=== PATIENT | male | born 1965 | race Caucasian/White ===

== ENCOUNTER → 2016-10-30 | Outpatient (CLI) | payer OTHER ==
[~2016-10-30] MED LIST: AMLO10TA PO; BISA5TAB7 PO; CATA0.1T PO; CLON-412 PO; CONRAY-43 43% 50ML VIAL (Q9960) As Ordered ONE; FOLI1TAB2 PO; LISI10TA4 PO; OXAZ10CA PO; OXAZ30CA2 PO; TRAZ50TA4 PO; VITA100T60 PO; VITMTA PO; ZEST1TAB6 PO; ZOLO50TA PO; serax PO
--- NOTE | 2016-10-30 14:45 | REP ---
MR ARTHROGRAM RIGHT WRIST: TECHNIQUE: Coronal T1, STIR, axial T2 fat sat, sagittal T2 fat sat, post arthrogram T1 fat sat all three planes. The triangular fibrocartilage complex appears intact. There is a complete tear of the scapholunate ligament, with extension of contrast from the radiocarpal joint into the intercarpal joints. Lunatotriquetral ligament appears intact. There is increased signal with mild to moderate surrounding fluid in flexor carpi radialis tendon just distal to the radiocarpal joint, consistent with a partial tear of that tendon. The other flexor and extensor tendons appear intact at the wrist. There is no other evidence of tenosynovitis. Small amount of scattered joint fluid is seen in the intercarpal joints, radiocarpal and ulnocarpal joints. There appears to be a small cyst along the dorsal aspect of the ulna measuring about 6 mm in maximum diameter. There is no bone marrow edema or occult fracture. There is ulnar minus variance, with ht ulna approximately 7 mm shorter than the radius. IMPRESSION: Complete tear scapholunate ligament. Partial tear flexor carpi radialis tendon just distal to the radiocarpal joint. Small cyst along the dorsal aspect of the distal ulna 6 mm in maximum diameter. There is ulnar minus variance. Triangular fibrocartilage complex is intact. Signed by Balaji Huerta MD 10/30/2016 05:26 P
--- NOTE | 2016-10-30 17:53 | REP ---
RIGHT WRIST ARTHROGRAM: The procedure was performed under the direct supervision of Dr. Huerta. The images were reviewed with Dr. Huerta. The benefits and risks including, but not limited to pain, infection, bleeding, and anaphylaxis were explained to the patient and informed consent was obtained. The right radioscaphoid joint space was localized using fluoroscopic guidance. The skin was prepped and draped in a sterile fashion. 1% lidocaine was used as a local anesthetic. Using fluoroscopic guidance a 25-gauge needle was inserted and advanced into the joint. 3 mL of a solution containing 5 mL of Conray-43 and 5 mL of a solution containing 20 mL of sterile saline and 0.15 mL of ProHance was injected. Imaging obtained during injection show filling of the radiocarpal row. There is widening of the scapholunate interval. There is contrast seen in the intercarpal row. These findings suggest a scapholunate ligament tear. There is no contrast seen extending into the distal radioulnar joint. The triangular fibrocartilage complex appears intact. The needle was removed and the patient was taken to MRI for postprocedural imaging. IMPRESSION: There is widening of the scapholunate interval with contrast seen in the intercarpal row. These findings suggest a scapholunate ligament tear. 20 seconds of fluoroscopy time was utilized for this procedure. Reviewed by TERESA Pat 10/31/2016 09:23 AEdited and Signed by Balaji Huerta MD 11/01/2016 04:58 P
== END ==
LOC: M RADPRO 06:39
PROVIDERS: ATTEND Orthopaedic Surgery
DX: S63.511A Sprain of carpal joint of right wrist, initial encounter (principal); S63.8X1A Sprain of other part of right wrist and hand, initial encounter; M85.431 Solitary bone cyst, right ulna and radius; X58.XXXA Exposure to other specified factors, initial encounter; Y93.9 Activity, unspecified; Y92.9 Unspecified place or not applicable; Y99.8 Other external cause status
CPT/HCPCS: 25246; 73223; 77002; A9576; Q9960

== ENCOUNTER 2016-11-07 18:47 | Emergency (ER) | payer OTHER ==
[~2016-11-07] VITALS: Ht 177.8 cm; Wt 93.9 kg
[~2016-11-07 18:47] MED LIST changes: -CONRAY-43 43% 50ML VIAL (Q9960) As Ordered ONE; +LISI20TA PO; +MELO15TA4 PO
[2016-11-07] MEDS ORDERED: KETOROLAC 30 MG/ML VIAL (J1885) IV ONE (19:15)
--- NOTE | 2016-11-07 19:35 | REP ---
Chest two views HISTORY: Chest pain Comparison: 09/30/2013 The lungs are clear. The heart is normal in size. The pulmonary vasculature is normal in appearance. The bony structure is intact. IMPRESSION: No acute disease. Signed by Alex Wakefield MD 11/07/2016 07:28 P
[2016-11-07 19:54] LABS: INR 1.37
[2016-11-07 19:56] LABS: BASO # 0.1 K/mm3 (0.0-0.2); BASO % 0.8 % (0.0-1.0); EOS # 0.2 K/mm3 (0.0-0.50); EOS % 2.8 % (0.0-3.0); LARGE UNSTAINED CELL # 0.2 K/mm3 (0.0-0.4); LARGE UNSTAINED CELL % 2.5 % (0.0-4.0); LYMPH # 2.5 K/mm3 (1.5-4.5); LYMPH % 36.8 % (24.0-44.0); MEAN CORPUSCULAR HEMOGLOBIN 34.5 pg (27.0-33.0); MEAN CORPUSCULAR HGB CONC 33.4 g/dl (32.0-36.5); MEAN CORPUSCULAR VOLUME 103.3 fl (80.0-96.0); MONO # 0.4 K/mm3 (0.0-0.8); MONO % 5.9 % (0.0-5.0); NEUTROPHILS # 3.5 K/mm3 (1.8-7.7); NEUTROPHILS % 51.1 % (36.0-66.0); RED CELL DISTRIBUTION WIDTH 14.5 % (11.5-14.5); WHITE BLOOD COUNT 6.9 K/mm3 (4.0-10.0)
[2016-11-07 20:18] LABS: PLATELET COUNT, AUTOMATED 46 k/mm3 (150-450)
[2016-11-07 20:26] LABS: ANION GAP 8 MEQ/L (8-16); BLOOD UREA NITROGEN 8 MG/DL (7-18); CARBON DIOXIDE LEVEL 28 MEQ/L (21-32); CHLORIDE LEVEL 101 MEQ/L (98-107); CREATININE FOR GFR 0.72 MG/DL (0.70-1.30); GLOMERULAR FILTRATION RATE > 60.0 (>56); GLUCOSE, FASTING 102 MG/DL (70-105); POTASSIUM SERUM 3.9 MEQ/L (3.5-5.1); SODIUM LEVEL 137 MEQ/L (136-145)
[2016-11-07] MEDS ORDERED: NS 1,000 ML IV ONE (20:45)
[2016-11-07] MEDS ORDERED: ISOVUE-370 76% 100ML VIAL (Q9967) As Ordered ONE (21:04)
--- NOTE | 2016-11-07 21:50 | REPUSA ---
CT angiogram of the chest Clinical statement: Chest pain and shortness of breath. Technique: Multiple axial CT images were obtained from the thoracic inlet through the upper abdomen a fter a bolus administration of nonionic intravenous contrast. Coronal and sagittal reconstructions we re also obtained. No comparison is available. Findings: The pulmonary arteries are well-opacified with contrast, with no intraluminal filling defec ts to suggest embolism. The thoracic aorta is unremarkable. Thyroid gland is within normal limits. Th ere is no thoracic lymphadenopathy. There are no pericardial or pleural effusions. The lungs are josh r. An azygous lobe is noted in the right lung. Limited imaging of the upper abdomen is unremarkable. There are no suspicious osseous lesions. Impression: Unremarkable CT examination of the chest. No evidence of pulmonary embolism.
--- NOTE | 2016-11-07 21:55 | ECGEPIP ---
Stationary ECG Study [facility] - ED Test Date: 2016-11-07 Pat Name: LOUIS SINGER Department: Room: - Gender: M Scouts: CAROLA : 1965 Requested By: Sara Alston Order Number: [id number] Reading MD: Kodak Malloy Measurements Intervals [place] Rate: 77 P: 46 CT: 134 QRS: 1 QRSD: 92 T: 30 QT: 400 QTc: 453 Interpretive Statements SINUS RHYTHM NONSPECIFIC T-WAVE ABNORMALITY SIMILAR TO 05/12/15 Electronically Signed On 11-07-2016 21:55:20 EDT by Kodak Malloy
[2016-11-07] MEDS ORDERED: KETO10TAB PO (22:58)
[2016-11-07 23:02] VITALS: BP 148/94
== END 2016-11-07 23:13 | disposition home or self-care (01) ==
LOC: M ED 19:43
DX: R07.89 Other chest pain (principal)
CPT/HCPCS: 36415; 71020; 71275; 80048; 82550; 82553; 85025; 85610; 85730; 93005; 96374; 99283; J1885; Q9967

== ENCOUNTER 2017-11-05 20:15 | Inpatient (IN) | payer MEDICAID, OTHER, SELFPAY ==
[2017-11-05 22:01] LABS: LACTIC ACID SEPSIS PROTOCOL 1.6 MMOL/L (0.4-2.0)
[2017-11-05 22:02] LABS: HEMATOCRIT 35.2 % (42.0-52.0); HEMOGLOBIN 12.2 g/dl (13.5-17.5); MEAN CORPUSCULAR HGB CONC 34.7 g/dl (32.0-36.5); MEAN CORPUSCULAR VOLUME 103.8 fl (80.0-96.0); RED BLOOD COUNT 3.39 10^6/uL (4.30-6.10); RED CELL DISTRIBUTION WIDTH 15.3 % (11.5-14.5)
[2017-11-05 22:03] LABS: ALBUMIN 2.6 GM/DL (3.2-5.2); ALKALINE PHOSPHATASE 139 U/L (45-117); ALT/SGPT 38 U/L (12-78); ANION GAP 7 MEQ/L (8-16); AST/SGOT 161 U/L (7-37); BILIRUBIN,DIRECT 1.7 MG/DL (0.0-0.2); BILIRUBIN,TOTAL 2.5 MG/DL (0.2-1.0); BLOOD UREA NITROGEN 5 MG/DL (7-18); CALCIUM LEVEL 7.9 MG/DL (8.5-10.1); CARBON DIOXIDE LEVEL 27 MEQ/L (21-32); CHLORIDE LEVEL 107 MEQ/L (98-107); CPK CREATINE PHOSPHOKINASE 462 U/L (39-308); GLOMERULAR FILTRATION RATE > 60.0 (>56); GLUCOSE, FASTING 101 MG/DL (70-100); POTASSIUM SERUM 3.7 MEQ/L (3.5-5.1); SODIUM LEVEL 141 MEQ/L (136-145); TOTAL PROTEIN 9.1 GM/DL (6.4-8.2); TROPONIN I < 0.02 NG/ML (< 0.10)
[2017-11-05 22:07] LABS: ADD MANUAL DIFFER YES; DIFF SLIDE NUMBER 361; PLATELET COUNT, AUTOMATED 55 10^3/uL (150-450); POS COUNT POS FLAG; POSITIVE DIFF POS FLAG
[2017-11-05 22:08] LABS: IMMATURE PLATELET FRACTION % 10.9 % (0.0-10.9)
[2017-11-05 22:10] LABS: AMPHETAMINES LEVEL URINE NEGATIVE (NEGATIVE); BARBITURATES URINE NEGATIVE (NEGATIVE); BENZODIAZEPINES URINE NEGATIVE (NEGATIVE); CANNABINOIDS URINE NEGATIVE (NEGATIVE); COCAINE METABOLITE URINE NEGATIVE (NEGATIVE); METHADONE URINE NEGATIVE (NEGATIVE); OPIATES URINE NEGATIVE (NEGATIVE); PHENCYCLIDINE URINE NEGATIVE (NEGATIVE)
[2017-11-05 22:15] LABS: KETONE, URINE AUTO RFX NEGATIVE (NEGATIVE); LEUKOCYTE ESTERASE UR AUTO RFX NEGATIVE (NEGATIVE); NITRITE, URINE AUTO RFX NEGATIVE (NEGATIVE); RBC, URINE AUTO RFX 3 /HPF (0-3); SPECIFIC GRAVITY UR AUTO RFX 1.006 (1.002-1.035); SQUAM EPITHELIAL CELL UR AURFX 0 /HPF (0-6); WBC, URINE AUTO RFX 0 /HPF (0-3)
[2017-11-05 22:19] LABS: CK-MB VALUE MASS 10.5 NG/ML (<3.6); MB/CK RELATIVE INDEX 2.27 (< OR =4); PROTHROMBIN TIME 19.5 SECONDS (12.4-14.5)
[2017-11-05 22:20] LABS: PARTIAL THROMBOPLASTIN TIME 41.6 SECONDS (26.8-37.9)
[2017-11-05 22:23] LABS: ETHYL ALCOHOL (ETHANOL) 0.437 % (0.000-0.010)
[2017-11-05 22:31] LABS: ATYPICAL LYMPH 3 % (0-5); EOSINOPHILS 5 % (0-5); LYMPHOCYTES 47 % (16-52); MONOCYTES 6 % (0-8); NEUTROPHILS 39 % (35-75)
[2017-11-05 22:33] LABS: PLATELET ESTIMATE DECREASED (NORMAL)
[2017-11-05 23:16] LABS: AMMONIA 47 uMOL/L (<32)
[2017-11-06] MEDS ORDERED: ONDANSETRON 4MG/2ML VIAL (J2405) IV (03:00)
[2017-11-06] MEDS: MULTIVITAMIN -ADULT INJECTION 10 ML, THIAMINE INJection 100 MG, FOLIC ACID 1 MG in NS 1... IV (04:30)
[2017-11-06] MEDS ORDERED: LORazepam 2 MG/ML VIAL (J2060) IV (05:30)
[2017-11-06 05:54] LABS: BASO # 0.1 10^3/uL (0.0-0.2); EOS # 0.2 10^3/uL (0.0-0.50); EOS % 2.7 % (0.0-3.0); HEMOGLOBIN 12.2 g/dl (13.5-17.5); IMMATURE GRANULOCYTE % 0.3 % (0-3.0); LYMPH % 40.8 % (24.0-44.0); MEAN CORPUSCULAR HEMOGLOBIN 35.3 pg (27.0-33.0); MEAN CORPUSCULAR HGB CONC 34.9 g/dl (32.0-36.5); MEAN CORPUSCULAR VOLUME 101.2 fl (80.0-96.0); MONO # 0.7 10^3/uL (0.0-0.8); MONO % 8.9 % (0.0-5.0); NEUTROPHILS # 3.4 10^3/uL (1.8-7.7); NEUTROPHILS % 46.3 % (36.0-66.0); RED BLOOD COUNT 3.46 10^6/uL (4.30-6.10); RED CELL DISTRIBUTION WIDTH 15.3 % (11.5-14.5); WHITE BLOOD COUNT 7.3 10^3/uL (4.0-10.0)
[2017-11-06 06:01] LABS: PLATELET COUNT, AUTOMATED 47 10^3/uL (150-450)
[2017-11-06 06:10] LABS: ALBUMIN 2.5 GM/DL (3.2-5.2); ALKALINE PHOSPHATASE 123 U/L (45-117); ALT/SGPT 34 U/L (12-78); ANION GAP 8 MEQ/L (8-16); AST/SGOT 160 U/L (7-37); BILIRUBIN,TOTAL 2.8 MG/DL (0.2-1.0); BLOOD UREA NITROGEN 4 MG/DL (7-18); CALCIUM LEVEL 7.9 MG/DL (8.5-10.1); CARBON DIOXIDE LEVEL 28 MEQ/L (21-32); CHLORIDE LEVEL 109 MEQ/L (98-107); CREATININE FOR GFR 0.53 MG/DL (0.70-1.30); GLOMERULAR FILTRATION RATE > 60.0 (>56); GLUCOSE, FASTING 94 MG/DL (70-100); POTASSIUM SERUM 3.6 MEQ/L (3.5-5.1); SODIUM LEVEL 145 MEQ/L (136-145); TOTAL PROTEIN 8.8 GM/DL (6.4-8.2)
[2017-11-06] MEDS ORDERED: SENOKOT S TAB PO (09:00)
[2017-11-06] MEDS: LACTULOSE 20 GM/30 ML SYRUP UD PO ×2 (09:11→21:07)
[2017-11-06] MEDS ORDERED: ISOVUE-370 76% 100ML VIAL (Q9967) As Ordered (10:22)
[2017-11-06 10:26] LABS: HEPATITIS B SURFACE ANTIGEN NEGATIVE (NEGATIVE)
[2017-11-06 10:46] LABS: HEPATITIS C VIRUS ABY INDEX 0.1 INDEX (<0.8)
[2017-11-06 10:48] LABS: LACTIC ACID SEPSIS PROTOCOL 2.3 MMOL/L (0.4-2.0)
[2017-11-06 10:48] LABS: HEPATITIS B CORE ANTIBODY IGM NEGATIVE (NEGATIVE)
[2017-11-06 10:55] LABS: PROLACTIN 12.7 NG/ML (2.1-17.7)
[2017-11-06] MEDS: NS 1,000 ML IV (12:26)
[2017-11-06] MEDS: OXAZEPAM 10 MG CAP PO ×2 (13:03→21:10)
[2017-11-06 15:01] LABS: SPEC. GRAVITY BODY FLUIDS 1.018 (NOT ESTABLISHED)
[2017-11-06 15:23] LABS: SOURCE, BODY FLUID ALBUMIN ASCITES; SOURCE, BODY FLUID GLUCOSE ASCITES; SOURCE, BODY FLUID TOT PROTEIN ASCITES; TOTAL PROTEIN, BODY FLUID 2.4 G/DL (NOT ESTABLISHED)
[2017-11-06 15:31] LABS: BF MONONUCLEAR CELL % 88.6 % (0-0); BF POLYMORPHONUCLEAR CELL % 11.4 % (0-0); RBC BODY FLUID < 2 10^3/uL (<2); WBC BODY FLUID 149 /uL (0-10)
[2017-11-06 15:34] LABS: APPEARANCE, BODY FLUID HAZY (CLEAR); ASCITES FL COLOR YELLOW (COLORLESS); BF DIFF IF INDICATED? YES (NO); SOURCE, BODY FLUID ASCITES
[2017-11-06] MEDS: THIAMINE 100 MG TAB PO (21:07)
[2017-11-07] MEDS: ACETAMINOPHEN TAB 650MG DOSE (2X325MG) PO (05:55)
[2017-11-07] MEDS: OXAZEPAM 10 MG CAP PO ×5 (05:56→23:54)
[2017-11-07] MEDS: THIAMINE 100 MG TAB PO ×2 (08:15→20:37)
[2017-11-07] MEDS: FOLIC ACID 1 MG TAB PO (08:16)
[2017-11-07] MEDS: LACTULOSE 20 GM/30 ML SYRUP UD PO ×2 (08:16→20:37)
[2017-11-07] MEDS: amLODIPine 10 MG TAB PO (17:35)
[2017-11-08] MEDS: OXAZEPAM 10 MG CAP PO ×2 (05:27→13:02)
[2017-11-08] MEDS: THIAMINE 100 MG TAB PO (08:30)
[2017-11-08] MEDS: LACTULOSE 20 GM/30 ML SYRUP UD PO (08:30)
[2017-11-08] MEDS: FOLIC ACID 1 MG TAB PO (08:30)
== END 2017-11-08 14:38 | disposition home health service (06) | DRG 775 ==
LOC: M ED 20:15 → M ED INP 11-06 02:48 → M MSPAV 11-07 13:14 → M PCU 11-06 05:58
PROC: 0W9G3ZZ Drainage of Peritoneal Cavity, Percutaneous Approach (ICD-10-PCS; principal; 2017-11-06)
DX: F10.239 Alcohol dependence with withdrawal, unspecified (principal); R18.8 Other ascites; D69.6 Thrombocytopenia, unspecified; K70.9 Alcoholic liver disease, unspecified; F10.220 Alcohol dependence with intoxication, uncomplicated; I10 Essential (primary) hypertension; K42.9 Umbilical hernia without obstruction or gangrene; K21.9 Gastro-esophageal reflux disease without esophagitis; Z79.899 Other long term (current) drug therapy

== ENCOUNTER → 2019-03-17 | Outpatient (CLI) | payer OTHER ==
[~2019-03-17] MED LIST changes: +BIOF4GEL2 EXT; +FOLI1TAB11 PO; -FOLI1TAB2 PO; +KETO10TAB PO; +LACT10SO3 PO; -LISI20TA PO; +LISI20TA19 PO; +MELO15TA28 PO; -MELO15TA4 PO; -OXAZ10CA PO; +OXAZ10CA3 PO; +THIA100TA PO; +TRAZ-252 PO; -TRAZ50TA4 PO; +[UNRECOGNIZED DRUG - OTHER] XX
--- NOTE | 2019-03-17 18:43 | REP ---
Shoulder series: Three views: History: Chronic left shoulder pain. Findings: The left glenohumeral and acromioclavicular joints are normally aligned. Periarticular soft tissues are unremarkable. No erosive changes seen. Impression: No acute abnormality. Electronically Signed by Abilio Singh MD 03/18/2019 09:07 A
--- NOTE | 2019-03-17 18:46 | REP ---
Left ankle series: Four views. History: Chronic left ankle pain. Findings: Four views of the left ankle demonstrate an intact ankle mortise there is a small corticated ossicle adjacent to the medial malleolus. A linear wafer shaped calcific opacity is seen adjacent to the lateral malleolus, suggestive of a evulsion chip fracture. There is lateral soft tissue swelling. This should be correlated with historical findings. No erosive change is seen. There is some vascular calcification in the distal calf soft tissues and this lateral soft tissue density may relate to this as well. No donor site is seen. Impression: No acute bony abnormality. Lateral soft tissue swelling. Linear calcific opacity adjacent to the lateral malleolus of uncertain significance as above. Electronically Signed by Abilio Singh MD 03/18/2019 09:08 A
== END ==
LOC: M LRY 15:46
PROVIDERS: ATTEND Family Medicine
DX: M25.512 Pain in left shoulder (principal); M25.572 Pain in left ankle and joints of left foot

== ENCOUNTER → 2019-03-17 | Outpatient (REF) | payer OTHER ==
[2019-03-17 17:12] LABS: BASO % 0.7 % (0.0-1.0); EOS # 0.2 10^3/uL (0.0-0.5); EOS % 2.8 % (0.0-3.0); HEMATOCRIT 38.3 % (42.0-52.0); HEMOGLOBIN 13.2 g/dl (13.5-17.5); LYMPH # 2.5 10^3/uL (1.5-5.0); LYMPH % 44.1 % (24.0-44.0); MEAN CORPUSCULAR HEMOGLOBIN 34.1 pg (27.0-33.0); MEAN CORPUSCULAR HGB CONC 34.5 g/dl (32.0-36.5); MONO # 0.5 10^3/uL (0.0-0.8); MONO % 8.9 % (0.0-5.0); NEUTROPHILS # 2.5 10^3/uL (1.5-8.5); NEUTROPHILS % 43.3 % (36.0-66.0); RED BLOOD COUNT 3.87 10^6/uL (4.30-6.10); WHITE BLOOD COUNT 5.7 10^3/uL (4.0-10.0)
[2019-03-17 17:22] LABS: APPEARANCE, URINE CLEAR (CLEAR); BACTERIA, URINE AUTO NEGATIVE (NEGATIVE); BILIRUBIN, URINE AUTO NEGATIVE (NEGATIVE); BLOOD, URINE BLOOD 2+ (NEGATIVE); COLOR, URINE YELLOW (YELLOW); GLUCOSE, URINE (UA) AUTO NEGATIVE (NEGATIVE); KETONE, URINE AUTO NEGATIVE (NEGATIVE); LEUKOCYTE ESTERASE, URINE AUTO NEGATIVE (NEGATIVE); MUCUS, URINE SMALL (NEGATIVE); NITRITE, URINE AUTO NEGATIVE (NEGATIVE); PROTEIN, URINE AUTO NEGATIVE (NEGATIVE); RBC, URINE AUTO 7 /HPF (0-3); SPECIFIC GRAVITY URINE AUTO 1.013 (1.002-1.035); SQUAMOUS EPITHELIAL CELL UR AU 0 /HPF (0-6); UROBILINOGEN, URINE AUTO 0.2 mg/dL (0.0-2.0); WBC, URINE AUTO 0 /HPF (0-3)
[2019-03-17 17:23] LABS: ALBUMIN 3.3 GM/DL (3.2-5.2); ALT/SGPT 39 U/L (12-78); BILIRUBIN,TOTAL 1.6 MG/DL (0.2-1.0); BLOOD UREA NITROGEN 9 MG/DL (7-18); CALCIUM LEVEL 9.2 MG/DL (8.5-10.1); CARBON DIOXIDE LEVEL 26 MEQ/L (21-32); CHLORIDE LEVEL 108 MEQ/L (98-107); CREATININE FOR GFR 1.04 MG/DL (0.70-1.30); ETHYL ALCOHOL (ETHANOL) 0.273 % (0.000-0.010); FOLATE 16.1 NG/ML; GLOMERULAR FILTRATION RATE > 60.0 (>56); GLUCOSE, FASTING 107 MG/DL (70-100); MAGNESIUM LEVEL 1.8 MG/DL (1.8-2.4); POTASSIUM SERUM 4.1 MEQ/L (3.5-5.1); SODIUM LEVEL 143 MEQ/L (136-145); TOTAL PROTEIN 8.3 GM/DL (6.4-8.2); VITAMIN B12 LEVEL 1365 PG/ML
[2019-03-17 17:27] LABS: INR 1.47; PROTHROMBIN TIME 17.6 SECONDS (11.8-14.0)
[2019-03-17 17:28] LABS: PARTIAL THROMBOPLASTIN TIME 36.2 SECONDS (25.0-38.4)
[2019-03-17 17:30] LABS: URINE TOTAL PROTEIN 18.9 MG/DL (0-12)
[2019-03-17 17:46] LABS: PLATELET COUNT, AUTOMATED 66 10^3/uL (150-450)
[2019-03-19 10:02] LABS: ALBUMIN 3.96 GM/DL (3.29-5.55); ALBUMIN % 47.7 % (55.8-66.1); ALPHA-1-GLOBULIN % 3.1 % (2.9-4.9); ALPHA-1-GLOBULINS 0.26 GM/DL (0.17-0.41); ALPHA-2-GLOBULINS 0.63 GM/DL (0.42-0.99); ALPHA-2-GLOBULINS % 7.6 % (7.1-11.8); BETA-1-GLOBULINS 0.51 GM/DL (0.28-0.60); BETA-1-GLOBULINS % 6.2 % (4.7-7.2); BETA-2-GLOBULINS % 7.2 % (3.2-6.5); GAMMA GLOBULIN % 28.2 % (11.1-18.8); GAMMA GLOBULINS 2.34 GM/DL (0.65-1.58)
[2019-03-19 13:53] LABS: UPEP INTERPRETATION NO M-SPIKE NOTED; URINE VOLUME RANDOM ML
== END ==
LOC: M SFHCLERA 15:36
PROVIDERS: ATTEND Family Medicine
DX: M89.8X9 Other specified disorders of bone, unspecified site (principal); K76.9 Liver disease, unspecified; F10.10 Alcohol abuse, uncomplicated
CPT/HCPCS: 80053; 81001; 82105; 82607; 82746; 83735; 84165; 84166; 84443; 85025; 85049; 85055; 85610; 85730; G0480

== ENCOUNTER → 2019-03-26 | Outpatient (CLI) | payer MEDICAID ==
--- NOTE | 2019-03-26 08:20 | REP ---
, right upper quadrant ultrasound for chronic liver disease: Comparison is 11/05/2017. There is no cholelithiasis, gallbladder wall thickening or pericholecystic fluid. There is no intrahepatic or extrahepatic biliary duct dilatation. The common biliary duct measures 4.1 ml in diameter. The hepatic parenchyma demonstrates increased heterogeneous echogenicity compatible with the clinical history of chronic hepatocellular disease. No focal hepatic masses are identified. The left lobe of the liver appears enlarged, also compatible with chronic hepatocellular disease. With Doppler ultrasound assessment. There is flow reversal in the main portal vein suggestive of portal hypertension. The right kidney measures 12.7 x 6.1 x 6.5 cm and is normal size. There is no right renal calculus, hydronephrosis, mass or cyst. The there appears to be increased volume of fat in the right renal pelvis. The abdominal aorta is unremarkable. There is no right upper quadrant ascites. Impression: Echogenic heterogeneous hepatic parenchyma, enlarged hepatic left lobe, all compatible with chronic hepatocellular disease. There is no hepatic mass. There is reversal of flow in the portal vein, compatible with portal hypertension. Electronically Signed by Balaji Mendoza MD 03/26/2019 08:11 A
== END ==
LOC: M RAD 06:35
PROVIDERS: ATTEND Family Medicine
DX: K76.9 Liver disease, unspecified (principal)

== ENCOUNTER → 2019-03-31 | Outpatient (REF) | payer MEDICAID ==
[2019-03-31 16:56] LABS: APPEARANCE, URINE CLEAR (CLEAR); BACTERIA, URINE AUTO NEGATIVE (NEGATIVE); BILIRUBIN, URINE AUTO NEGATIVE (NEGATIVE); BLOOD, URINE BLOOD 2+ (NEGATIVE); COLOR, URINE AMBER (YELLOW); GLUCOSE, URINE (UA) AUTO NEGATIVE (NEGATIVE); KETONE, URINE AUTO NEGATIVE (NEGATIVE); LEUKOCYTE ESTERASE, URINE AUTO NEGATIVE (NEGATIVE); MUCUS, URINE SMALL (NEGATIVE); NITRITE, URINE AUTO NEGATIVE (NEGATIVE); PROTEIN, URINE AUTO NEGATIVE (NEGATIVE); RBC, URINE AUTO 25 /HPF (0-3); SPECIFIC GRAVITY URINE AUTO 1.015 (1.002-1.035); SQUAMOUS EPITHELIAL CELL UR AU 0 /HPF (0-6); WBC, URINE AUTO 1 /HPF (0-3)
== END ==
LOC: M SFHCLERA 12:58
PROVIDERS: ATTEND Family Medicine
DX: R31.29 Other microscopic hematuria (principal)

== ENCOUNTER 2019-08-31 09:28 | Outpatient (RCR) | payer OTHER ==
[~2019-08-31 09:28] MED LIST changes: +LISI-538 PO
== END 2019-09-05 ==
LOC: M PT 09:28
PROVIDERS: ATTEND Physician Assistant Medical
DX: S93.402A Sprain of unspecified ligament of left ankle, initial encounter (principal); M25.572 Pain in left ankle and joints of left foot; X58.XXXA Exposure to other specified factors, initial encounter; Y92.9 Unspecified place or not applicable

== ENCOUNTER 2019-09-09 09:30 | Outpatient (RCR) | payer OTHER | END 2019-10-06 | LOC: M PT 09:30 | PROVIDERS: ATTEND Physician Assistant Medical | DX: Z51.89 Encounter for other specified aftercare (principal); M25.572 Pain in left ankle and joints of left foot; S93.402A Sprain of unspecified ligament of left ankle, initial encounter; X58.XXXA Exposure to other specified factors, initial encounter; Y92.89 Other specified places as the place of occurrence of the external cause; Y93.9 Activity, unspecified; Y99.9 Unspecified external cause status ==

== ENCOUNTER 2019-12-23 15:10 | Inpatient (IN) | payer OTHER ==
[~2019-12-23] VITALS: Ht 182.9 cm; Wt 83.5 kg
[~2019-12-23 15:10] MED LIST changes: -LISI-538 PO; +LISI10TA22 PO; -LISI10TA4 PO; -LISI20TA19 PO; +LISI20TA33 PO; +LISI20TA35 PO
[2019-12-23] MEDS ORDERED: CEPH500C PO (15:15)
[2019-12-23] MEDS ORDERED: IBUP80TA PO (15:15)
[2019-12-23] MEDS ORDERED: NS 1,000 ML IV ONE (16:00)
[2019-12-23] MEDS ORDERED: PANTOPRAZOLE 40MG VIAL (C9113 PER 1) IV ONE ×2 (16:30→16:45)
[2019-12-23] MEDS ORDERED: LORazepam 2 MG/ML VIAL IV STA ×2 (16:32→18:04)
[2019-12-23] MEDS ORDERED: OCTREOTIDE ACETATE 100MCG/ML VIAL (J2354 PER 25MCG) IV STA (16:40)
[2019-12-23] MEDS: PANTOPRAZOLE SODIUM 40 MG in D5W 50 ML IV SCH ×3 (16:44→23:27)
[2019-12-23] MEDS ORDERED: OCTREOTIDE ACETATE 1,200 MCG in NS 238.8 ML IV SCH (16:45)
[2019-12-23 17:04] LABS: BASO % 0.8 % (0.0-1.0); EOS % 0.2 % (0.0-3.0); HEMATOCRIT 35.2 % (42.0-52.0); HEMOGLOBIN 11.5 g/dl (13.5-17.5); LYMPH # 1.1 10^3/uL (1.5-5.0); LYMPH % 20.2 % (24.0-44.0); MEAN CORPUSCULAR HEMOGLOBIN 32.3 pg (27.0-33.0); MEAN CORPUSCULAR HGB CONC 32.7 g/dl (32.0-36.5); MEAN CORPUSCULAR VOLUME 98.9 fl (80.0-96.0); MONO # 0.3 10^3/uL (0.0-0.8); NEUTROPHILS # 3.8 10^3/uL (1.5-8.5); NEUTROPHILS % 72.6 % (36.0-66.0); RED BLOOD COUNT 3.56 10^6/uL (4.30-6.10); WHITE BLOOD COUNT 5.2 10^3/uL (4.0-10.0)
[2019-12-23 17:09] LABS: PLATELET COUNT, AUTOMATED 33 10^3/uL (150-450)
[2019-12-23 17:20] LABS: PROTHROMBIN TIME 18.8 SECONDS (11.8-14.0)
[2019-12-23 17:21] LABS: PARTIAL THROMBOPLASTIN TIME 33.9 SECONDS (25.0-38.4)
[2019-12-23 17:25] LABS: ALBUMIN 3.2 GM/DL (3.2-5.2); ALT/SGPT 70 U/L (12-78); BILIRUBIN,DIRECT 2.4 MG/DL (0.0-0.2); BILIRUBIN,TOTAL 4.1 MG/DL (0.2-1.0); BLOOD UREA NITROGEN 22 MG/DL (7-18); CALCIUM LEVEL 8.6 MG/DL (8.5-10.1); CARBON DIOXIDE LEVEL 25 MEQ/L (21-32); CHLORIDE LEVEL 108 MEQ/L (98-107); CREATININE FOR GFR 0.79 MG/DL (0.70-1.30); ETHYL ALCOHOL (ETHANOL) 0.236 % (0.000-0.010); GLOMERULAR FILTRATION RATE > 60.0 (>56); GLUCOSE, FASTING 163 MG/DL (70-100); LIPASE 250 U/L (73-393); POTASSIUM SERUM 4.5 MEQ/L (3.5-5.1); SODIUM LEVEL 141 MEQ/L (136-145); TOTAL PROTEIN 7.7 GM/DL (6.4-8.2)
[2019-12-23] MEDS ORDERED: cefTRIAXone SOD 1 GM in D5W MINI-BAG PLUS 50 ML IV ONE (17:45)
[2019-12-23 18:26] LABS: D-DIMER QUANT > 4000 ng/ml (<500)
[2019-12-23 18:47] LABS: CK-MB VALUE MASS 4.7 NG/ML (<3.6); MB/CK RELATIVE INDEX 0.81 (< OR =4); TROPONIN I 0.04 NG/ML (< 0.10)
--- NOTE | 2019-12-23 19:21 | CR.PDOC ---
General Date of Consultation: Dec 23, 2019 Referring Provider: SYLVIA GAONA MD Attending Physician: WENCESLAO PETERS MD Consultation Primary physician/ hospitalist: -PCP in [facility] ( used to See Dr. Vanegas) / Dr. Sylvia Gaona Reason for consult: -Hematemesis HPI: 54-year-old male patient with HTN, HLD, acid reflux, heavy alcohol use, (last drink overnight), suspected liver cirrhosis and portal hypertension and ultrasound done in 2019, not following with any physician recently, presented to ER for symptoms of hematemesis. GI was consulted for the same. Patient reports having acute onset vomiting with blood in the vomit, at least 4 episodes since today morning. He had one witnessed hematemsis in ER and he does reports some abdominal pain from vomiting but none prior to onset of the vomiting. He reports taking ibuprofen daily for the past 1 week for back and leg pain. He denies taking any blood thinning medications. His last meal is breakfast when he ate left over pizza from yesterday. He denies any previous episodes of vomiting blood. Patient does report tremulousness when he does not drink alcohol for couple of days. Pertinent negative GI symptoms: Patient denies fever, sick contacts, recent travel, diarrhea, abdominal pain, loss of appetite, early satiety or unintentional weight loss. Patient reports regular bowel movements. Review of Systems: GI: as stated above CVS: No chest pain, No palpitations, No leg swelling. RS: No Shortness of breath, No Wheezing, no cough SHANK MAKER: No dizziness, No motor weakness, No sensory problems Hematology: No bruising, No gum bleeding, Musculoskeletal: No joint pain, ambulating well. Skin: No rash : No hematuria, No burning sensation of the urine ENT: No ear discharge/ pain, No dysphagia. Eyes: No photophobia. Jaundice Home medications: reviewed. Antithrombotic agents: -None Medical h/o: As above. Surgical h/o: None on abdomen. Social h/o: Alcohol: -. Heavy alcohol use, smoking: Denies, IVDA/ drugs: Denies . Family h/o of GI cancers - None Prior Endoscopies: None in [facility] Prior GI evaluations: -None in [facility] Exam: Vitals: reviewed General: Alert and oriented x 3, mild to moderate distress from hematemesis. HEENT: Mild pallor, mild icterus. Normal oropharynx, NO cervical lymph nodes. Chest: symmetric with bilateral clear air entry, CVS: S1, S2 heard, normal, no murmurs . Abdomen: non-distended, no surgical scars, soft, non-tender, no palpable masses, normal bowel sounds heard. Rectal exam: Patient refused . Extremities: no pedal edema, pulses palpable. SHANK MAKER: no focal motor or sensory deficits. Moves all extremities, tremulousness noted in outstretched hands. Skin: no rash. Labs: Platelets 33,000, hemoglobin 11.5, hematocrit 35.2, INR 1.6, liver panel show total bili 4.1, direct bili 2.4. Negative acute hepatitis workup in 2018. Imaging: reviewed. Impression: - Acute onset hematemesis, any patient with liver cirrhosis, portal hypertension, recent use of NSAIDs, chronic heavy alcohol use, DDx-- Variceal bleeding vs PUD vs MWT. - Alcoholic liver cirrhosis ( CTP B, MELD Na- 17) with abnormal liver panel - likely from alcohol liver disease and liver cirrhosis, MDF 26, No prior EGD, no Ascites on Ultrasound from 2019, No prior hepatic encephalopathy. Recommendations: - Patient educated about the test results, possible differential diagnoses and All questions answered. - NPO - Consider IV antibiotics ( prefer ceftriaxone if not contraindicated). - IV PPI ( can give pantoprazole 40 mg twice daily). - IV octreotide drip. - Avoid NSAIDs. - Monitor hemoglobin and hematocrit and transfuse as needed to keep hemoglobin levels above 7. - Will schedule for urgent EGD for further management. The procedure, indications, risks (bleeding, perforation, infection, hypotension, respiratory depression, allergy, need for endotracheal intubation, surgery, colostomy, cardiac arrest, even ), benefits, limitations (e.g., missing a lesion), and all other alternatives (including no intervention) were explained to the patient who understood and agreed for the procedure. - Please give reglan 10 mg once atleast 30 minutes prior to EGD. - In view of very low platelets, please obtain type and screen with crossmatch if needed during the procedure. - Patient to be admitted to monitored bed post procedure for further management under hospitalist service. - To closely monitor for alcohol withdrawal. - Follow operative note for post procedure recommendations. Plan of care discussed with patient and primary team. Patient verbalized understanding and agreed with the plan. Vital Signs/I&O Vital Signs Date Time Temp Pulse Resp B/P (MAP) Pulse Ox O2 Delivery O2 Flow Rate FiO2 12/23/19 18:31 81 95 12/23/19 18:30 18 130/76 (94) Room Air 12/23/19 15:11 97.2 Laboratory Data CBC/BMP Laboratory Tests 12/23/19 16:23 Microbiology Microbiology 12/23/19 Respiratory Virus Panel (PCR) (ZEV) - Final, Complete 12/23/19 Blood Culture, Received Pending Allergies Coded Allergies: No Known Allergies (Unverified , 04/15/15) Home Medications Scheduled Cephalexin (Cephalexin) 500 Mg Capsule, 500 MG PO BID, (Reported) 10 DAY COURSE STARTED ON 12/16/19 Scheduled PRN Ibuprofen (Ibuprofen) 800 Mg Tablet, 800 MG PO TID PRN for PAIN, (Reported) WENCESLAO PETERS MD Dec 23, 2019 19:21
[2019-12-23] MEDS ORDERED: fentaNYL 100 MCG/2 ML INJECTION (J3010) As Ordered ONE (19:49)
[2019-12-23] MEDS ORDERED: ROCURONIUM BROMIDE 50 MG/5 ML VIAL As Ordered ONE (19:50)
[2019-12-23] MEDS ORDERED: dexameTHASONE 4 MG/ML 1ML VIAL (J1100 PER 1MG) As Ordered ONE (19:50)
[2019-12-23] MEDS ORDERED: LIDOCAINE 2% 100MG/5ML SDV (FOR ANES.) As Ordered ONE (19:50)
[2019-12-23] MEDS ORDERED: MIDAZOLAM INJ 2MG/2ML VIAL (J2250 PER 1MG) As Ordered ONE (19:50)
[2019-12-23] MEDS ORDERED: METOCLOPRAMIDE INJ 10MG/2ML VIAL (J2765 PER 1) As Ordered ONE (19:50)
[2019-12-23] MEDS ORDERED: propofoL 200 MG/20 ML VIAL As Ordered ONE (19:50)
[2019-12-23] MEDS ORDERED: ONDANSETRON 4MG/2ML VIAL As Ordered ONE (19:50)
[2019-12-23] MEDS ORDERED: ETOMIDATE INJ 20MG/10ML VIAL As Ordered ONE (19:55)
[2019-12-23] MEDS ORDERED: METOCLOPRAMIDE INJ 10MG/2ML VIAL (J2765 PER 1) IV ONE (20:00)
[2019-12-23] MEDS: THIAMINE 100 MG TAB PO SCH (21:00)
--- NOTE | 2019-12-23 21:29 | ROOR ---
Patient Name: Robby Salvador Procedure Date: 12/23/2019 8:31 PM Date of : 1965 Age: 54 Room: Main OR Gender: Male Note Status: Finalized Procedure: Upper GI endoscopy Indications: Hematemesis Providers: Zachery Tracey MD Referring MD: Adiel Gaona MD Requesting Provider: Medicines: Monitored Anesthesia Care Complications: No immediate complications. Procedure: Pre-Anesthesia Assessment: - Prior to the procedure, a History and Physical was performed, and patient medications and allergies were reviewed. The patient is competent. The risks and benefits of the procedure and the sedation options and risks were discussed with the patient. All questions were answered and informed consent was obtained. Patient identification and proposed procedure were verified by the physician, the nurse and the anesthesiologist in the procedure room. Mental Status Examination: alert and oriented. Airway Examination: normal oropharyngeal airway and neck mobility. Respiratory Examination: clear to auscultation. CV Examination: normal. Prophylactic Antibiotics: The patient does not require prophylactic antibiotics. Prior Anticoagulants: The patient has taken no previous anticoagulant or antiplatelet agents. ASA Grade Assessment: II - A patient with mild systemic disease. After reviewing the risks and benefits, the patient was deemed in satisfactory condition to undergo the procedure. The anesthesia plan was to use monitored anesthesia care (MAC). Immediately prior to administration of medications, the patient was re-assessed for adequacy to receive sedatives. The heart rate, respiratory rate, oxygen saturations, blood pressure, adequacy of pulmonary ventilation, and response to care were monitored throughout the procedure. The physical status of the patient was re-assessed after the procedure. The Endoscope was introduced through the mouth, and advanced to the second part of duodenum. The upper GI endoscopy was accomplished without difficulty. The patient tolerated the procedure well. Findings: Four columns of oozing grade III, large (> 5 mm) varices were found in the lower third of the esophagus, 30 cm from the incisors. Stigmata of recent bleeding were evident and red nica signs were present. Seven bands were successfully placed with complete eradication, resulting in deflation of varices. There was no bleeding at the end of the procedure. Red blood was found in the entire examined stomach. Lavage of the area was performed using a moderate amount of sterile water, resulting in clearance with fair visualization. There is no endoscopic evidence of ulceration in the entire examined stomach. The duodenal bulb and second portion of the duodenum were normal. Impression: - Bleeding grade III and large (> 5 mm) esophageal varices. Completely eradicated. Banded. - Red blood in the entire stomach. - Normal duodenal bulb and second portion of the duodenum. - No specimens collected. Recommendation: - Patient has a contact number available for emergencies. The signs and symptoms of potential delayed complications were discussed with the patient. Return to normal activities tomorrow. Written discharge instructions were provided to the patient. - Return patient to ICU for observation. - NPO for 6 hours and then start on clear liquid diet for 24 hours and then advance if tolerated to low sodium diet ( <2gm per day). - IV PPI drip for 24 hours and then switch to oral PPI for total of 6 weeks. ( Oral PPI to be taken frame tender on empty stomach) - Continue IV Octreotide drip of 50mcg/hr for 3- 5 days - Antibiotics (ceftriaxone - 1 gm once daily if not contra-indicated) for total of 7 days. ( if being discharged can switch to Oral ciprofloxacin). - Monitor Hemoglobin/Hematocrit every 6 - 8 hours: transfuse as needed to maintain Hb around 7-8. ( Do Not transfuse over that level). - ICU/PCU monitoring for 24 hours. - Do Not place NG or OG tube. - Give antiemetics IV PRN for 24 hours. - Give thiamine and Folic acid supplementation. - Alcohol cessation counselling. - Monitor for alcohol withdrawal and delirium tremens. - Avoid NSAIDs. - Update GI if any acute change in status. - At the time of discharge, please start on non selective betablocker ( prefer propranolol)-- dose titrated based on the BP and heart rate ( goal 55 - 60 / min). - Upon discharge please give outpatient appointment in GI clinic in 2-3 weeks. ( please call [phone]). Zachery Tracey MD Zachery Tracey MD 12/23/2019 9:28:56 PM Electronically signed by Zachery Tracey MD Number of Addenda: 0 Note Initiated On: 12/23/2019 8:31 PM Estimated Blood Loss: Estimated blood loss was minimal.
--- NOTE | 2019-12-23 21:32 | GIPN ---
[facility] GI Progress Note GI Progress Note DATE: Dec 23, 2019 Post operative note: Please see the operative note for detailed procedure findings and recommendations. Patient tolerated the procedure well. Findings: Noted large varices with oozing of blood and stigmata of recent bleeding. These were successfully banded. Recommendations: - Return patient to ICU for observation. Hospitalist team consulted for the admission. - NPO for 6-12 hours and then start on clear liquid diet for 24 hours and then advance if tolerated to low sodium diet ( <2gm per day). - IV PPI drip for 24 hours and then switch to oral PPI for total of 6 weeks. ( Oral PPI to be taken farmer general on empty stomach) - Continue IV Octreotide drip of 50mcg/hr for 3- 5 days - Antibiotics (ceftriaxone - 1 gm once daily if not contra-indicated) for total of 7 days. ( if being discharged can switch to Oral ciprofloxacin). - Monitor Hemoglobin/Hematocrit every 6 - 8 hours: transfuse as needed to maintain Hb around 7-8. ( Do Not transfuse over that level). - ICU/PCU monitoring for 24 hours. - Do Not place NG or OG tube. - Give antiemetics IV PRN for 24 hours. - Give thiamine and Folic acid supplementation. - Alcohol cessation counselling. - Monitor for alcohol withdrawal and delirium tremens. - Avoid NSAIDs. - Update GI if any acute change in status. - At the time of discharge, please start on non selective betablocker ( prefer propranolol)-- dose titrated based on the BP and heart rate ( goal 55 - 60 / min). - Upon discharge please give outpatient appointment in GI clinic in 2-3 weeks. ( please call [phone]). Plan of care discussed with patient and primary team. Allergies Coded Allergies: No Known Allergies (Unverified , 04/15/15) Current Medications Current Medications Medications (Trade) Dose Ordered Sig/Darian Route PRN Reason Start Time Stop Time Status Last Admin Dose Admin Home Med (Med Rec Complete!) ASDIRECTED XX 12/23/19 18:30 12/23/19 18:25 DC Lorazepam (Ativan) 2 mg STAT STAT IV 12/23/19 16:32 12/23/19 16:33 DC 12/23/19 16:37 Lorazepam (Ativan) 2 mg STAT STAT IV 12/23/19 18:04 12/23/19 18:05 DC 12/23/19 18:30 Octreotide Acetate 1200 mcg/ Sodium Chloride 240 ml @ 10 mls/hr Q24H IV 12/23/19 16:45 12/23/19 17:44 Octreotide Acetate (SandoSTATIN) 50 mcg NOW STAT IV 12/23/19 16:40 12/23/19 16:46 DC 12/23/19 16:52 Pantoprazole Sodium 40 mg/ Dextrose 50 ml @ 10 mls/hr Q5H IV 12/23/19 16:45 12/23/19 16:44 VS,Fishbone, I+O VS, Fishbone, I+O Laboratory Tests 12/23/19 16:23 Vital Signs Date Time Temp Pulse Resp B/P (MAP) Pulse Ox O2 Delivery O2 Flow Rate FiO2 12/23/19 19:46 99.3 86 16 94 12/23/19 19:45 140/73 (95) 12/23/19 18:30 Room Air WENCESLAO PETERS MD Dec 23, 2019 21:32
[2019-12-23] MEDS ORDERED: METOCLOPRAMIDE INJ 10MG/2ML VIAL (J2765 PER 1) IV PRN (21:45)
[2019-12-23] MEDS ORDERED: LR 1,000 ML IV SCH (21:45)
[2019-12-23] MEDS ORDERED: ONDANSETRON 4MG/2ML VIAL IV PRN (21:45)
[2019-12-23 22:30] VITALS: BP 142/82
[2019-12-23] MEDS ORDERED: LORazepam 2 MG TAB PO PRN (22:30)
--- NOTE | 2019-12-23 22:52 | HPEPDOC ---
[facility] Medical History & Physical Date of Admission Dec 23, 2019 Date of Service: Dec 23, 2019 Attending Physician: KAYLA WALL MD History and Physical CHIEF COMPLAINT: Hematemesis HISTORY OF PRESENT ILLNESS: 54-year-old male with past medical history of alcohol abuse, hypertension, GERD, hyperlipidemia and likely cirrhosis based on imaging, presented to the hospital with profound hematemesis. Patient had urgent EGD performed which showed 4 columns of grade 3 esophageal varices, evidence of recent bleeding, requiring total of 7 bands, patient was seen in PACU. Patient is recovering from the effects of anesthesia, opens his eyes and able to answer simple questions intermittently, mumbling for the most part, unable to provide an adequate history/information. Information was obtained from medical providers and chart review. Patient's vitals are stable, he was intubated for the procedur e. PAST MEDICAL HISTORY: 1. Alcohol abuse. 2. Hypertension. 3. Hyperlipidemia. 4. GERD. 5. Likely undiagnosed cirrhosis PAST SURGICAL HISTORY: 1. Unknown. SOCIAL HISTORY: Unable to obtain FAMILY HISTORY: Unable to obtain ALLERGIES: Please see below. REVIEW OF SYSTEMS: Unable to obtain HOME MEDICATIONS: Please see below. PHYSICAL EXAMINATION: VITAL SIGNS: Please see below. GENERAL: No distress HEENT: Normocephalic, atraumatic, moist mucous membranes NECK: Supple CARDIOVASCULAR EXAMINATION: S1, S2, no murmurs RESPIRATORY EXAMINATION: Scattered rhonchi, poor air movement, no wheezing ABDOMINAL EXAMINATION: Soft, nontender, nondistended, positive bowel sounds EXTREMITIES: No edema SKIN: No rash NEUROLOGICAL EXAMINATION: Unable to assess due to sedation LABORATORY DATA: See below. MICROBIOLOGY: Please see below. ASSESSMENT: 54-year-old male with past medical history of alcohol abuse, likely cirrhosis, hypertension, hyperlipidemia and GERD is being admitted for esophageal variceal bleeding. PLAN: 1. Upper GI bleed. Status post urgent EGD, found to have 4 columns of grade 3 esophageal varices, evidence of recent bleed, requiring total of 7 bands, no active bleeding at the end of procedure, GI consult appreciated, continue PPI drip, octreotide, ceftriaxone, IV fluids. We'll monitor in the ICU setting tonight. Repeat labs now, we'll monitor H&H and transfuse as needed. 2. Alcohol abuse. Based on imaging patient likely has cirrhosis, alcohol level significantly katy vated at the time of presentation, [facility] Protocol. Thiamine/folic acid. 3. GERD. On PPI drip DVT prophylaxis: SCDs. GI prophylaxis: PPI Vital Signs Vital Signs Date Time Temp Pulse Resp B/P (MAP) Pulse Ox O2 Delivery O2 Flow Rate FiO2 12/23/19 22:05 98.5 87 18 148/85 (106) 96 Nasal Cannula 1 Laboratory Data Labs 24H Laboratory Tests 2 12/23/19 16:23: Immature Granulocyte % (Auto) 0.2, Neutrophils (%) (Auto) 72.6H, Lymphocytes (%) (Auto) 20.2L, Monocytes (%) (Auto) 6.0H, Eosinophils (%) (Auto) 0.2, Basophils (%) (Auto) 0.8, Neutrophils # (Auto) 3.8, Lymphocytes # (Auto) 1.1L, Monocytes # (Auto) 0.3, Eosinophils # (Auto) 0.0, Basophils # (Auto) 0.0, Nucleated Red Blood Cells % (auto) 0.0, Immature Platelet Fraction 6.8, Prothrombin Time 18.8H, Prothromb Time International Ratio 1.60, Activated Partial Thromboplast Time 33.9, D-Dimer, Quantitative > 4000H, Anion Gap 8, Glomerular Filtration Rate > 60.0, Calcium Level 8.6, Total Bilirubin 4.1H, Direct Bilirubin 2.4H, Aspartate Amino Transf (AST/SGOT) 192H, Alanine Aminotransferase (ALT/SGPT) 70, Alkaline Phosphatase 102, Ammonia 114H, Total Protein 7.7, Albumin 3.2, Albumin/Globulin Ratio 0.7, Lipase 250, Ethyl Alcohol Level 0.236H 12/23/19 18:03: Total Creatine Kinase 577H, Creatine Kinase MB 4.7H, Creatine Kinase MB Relative Index 0.81, Troponin I 0.04 CBC/BMP Laboratory Tests 12/23/19 16:23 Microbiology Microbiology 12/23/19 Respiratory Virus Panel (PCR) (ZEV) - Final, Complete 12/23/19 Blood Culture, Received Pending Home Medications Scheduled Cephalexin (Cephalexin) 500 Mg Capsule, 500 MG PO BID 10 DAY COURSE STARTED ON 12/16/19 Scheduled PRN Ibuprofen (Ibuprofen) 800 Mg Tablet, 800 MG PO TID PRN for PAIN Allergies Coded Allergies: No Known Allergies (Unverified , 04/15/15) A-FIB/CHADSVASC A-FIB History Current/History of A-Fib/PAF?: No KAYLA WALL MD Dec 23, 2019 22:52
[2019-12-23 23:00] VITALS: BP 159/80
[2019-12-23 23:26] LABS: HEMATOCRIT 33.2 % (42.0-52.0); HEMOGLOBIN 11.1 g/dl (13.5-17.5); MEAN CORPUSCULAR HEMOGLOBIN 33.2 pg (27.0-33.0); MEAN CORPUSCULAR HGB CONC 33.4 g/dl (32.0-36.5); MEAN CORPUSCULAR VOLUME 99.4 fl (80.0-96.0); RED BLOOD COUNT 3.34 10^6/uL (4.30-6.10); WHITE BLOOD COUNT 3.6 10^3/uL (4.0-10.0)
[2019-12-23] MEDS: OCTREOTIDE ACETATE 1,200 MCG in NS 238.8 ML IV SCH (23:27)
[2019-12-23 23:28] LABS: PLATELET COUNT, AUTOMATED 26 10^3/uL (150-450)
[2019-12-23 23:30] VITALS: BP 153/88
[2019-12-23 23:54] LABS: ALBUMIN 3.2 GM/DL (3.2-5.2); ALT/SGPT 62 U/L (12-78); BILIRUBIN,TOTAL 4.4 MG/DL (0.2-1.0); BLOOD UREA NITROGEN 21 MG/DL (7-18); CALCIUM LEVEL 8.1 MG/DL (8.5-10.1); CARBON DIOXIDE LEVEL 27 MEQ/L (21-32); CHLORIDE LEVEL 107 MEQ/L (98-107); CREATININE FOR GFR 0.72 MG/DL (0.70-1.30); GLOMERULAR FILTRATION RATE > 60.0 (>56); GLUCOSE, FASTING 152 MG/DL (70-100); POTASSIUM SERUM 4.9 MEQ/L (3.5-5.1); SODIUM LEVEL 141 MEQ/L (136-145); TOTAL PROTEIN 7.4 GM/DL (6.4-8.2)
[2019-12-24] VITALS (18 sets, daily range): BP systolic 119–188; BP diastolic 70–98
--- NOTE | 2019-12-24 01:32 | ECGEPIP ---
[facility] - ED Test Date: 2019-12-23 Pat Name: LOUIS SINGER Department: Room: - Gender: Male Vet Assistant: marilu : 1965 Requested By: GLEN Nunez PA-C Order Number: [id number] Reading MD: Bebeto Dunn Measurements Intervals [place] Rate: 75 P: 50 OR: 162 QRS: 5 QRSD: 102 T: 45 QT: 332 QTc: 372 Interpretive Statements SINUS RHYTHM Nonspecific T wave abnormality Similar to tracing done 11-05-17 Electronically Signed on 12-24-2019 1:32:37 EDT by Bebeto Dunn
[2019-12-24 04:41] LABS: HEMATOCRIT 30.6 % (42.0-52.0); HEMOGLOBIN 10.3 g/dl (13.5-17.5); MEAN CORPUSCULAR HEMOGLOBIN 33.3 pg (27.0-33.0); MEAN CORPUSCULAR HGB CONC 33.7 g/dl (32.0-36.5); RED BLOOD COUNT 3.09 10^6/uL (4.30-6.10); WHITE BLOOD COUNT 4.6 10^3/uL (4.0-10.0)
[2019-12-24 04:46] LABS: PLATELET COUNT, AUTOMATED 24 10^3/uL (150-450)
[2019-12-24] MEDS: PANTOPRAZOLE SODIUM 40 MG in D5W 50 ML IV SCH ×4 (04:56→17:54)
[2019-12-24 05:13] LABS: ALT/SGPT 57 U/L (12-78); BILIRUBIN,TOTAL 3.8 MG/DL (0.2-1.0); BLOOD UREA NITROGEN 18 MG/DL (7-18); CALCIUM LEVEL 8.1 MG/DL (8.5-10.1); CARBON DIOXIDE LEVEL 29 MEQ/L (21-32); CHLORIDE LEVEL 108 MEQ/L (98-107); CREATININE FOR GFR 0.69 MG/DL (0.70-1.30); GLOMERULAR FILTRATION RATE > 60.0 (>56); GLUCOSE, FASTING 157 MG/DL (70-100); MAGNESIUM LEVEL 1.7 MG/DL (1.8-2.4); POTASSIUM SERUM 4.4 MEQ/L (3.5-5.1); SODIUM LEVEL 141 MEQ/L (136-145); TOTAL PROTEIN 7.1 GM/DL (6.4-8.2)
[2019-12-24] MEDS ORDERED: amLODIPine 5 MG TAB PO STA (05:55)
[2019-12-24] MEDS: MULTIVITAMINS/MINERALS THERAP 1 TAB PO SCH (08:16)
[2019-12-24] MEDS: THIAMINE 100 MG TAB PO SCH ×2 (08:16→20:00)
[2019-12-24] MEDS: FOLIC ACID 1 MG TAB PO SCH (08:16)
[2019-12-24 08:23] LABS: BASO % 0.2 % (0.0-1.0); HEMATOCRIT 30.1 % (42.0-52.0); HEMOGLOBIN 10.2 g/dl (13.5-17.5); LYMPH # 1.1 10^3/uL (1.5-5.0); LYMPH % 20.8 % (24.0-44.0); MEAN CORPUSCULAR HEMOGLOBIN 33.2 pg (27.0-33.0); MEAN CORPUSCULAR HGB CONC 33.9 g/dl (32.0-36.5); MONO # 0.6 10^3/uL (0.0-0.8); MONO % 12.4 % (0.0-5.0); NEUTROPHILS # 3.4 10^3/uL (1.5-8.5); NEUTROPHILS % 66.2 % (36.0-66.0); RED BLOOD COUNT 3.07 10^6/uL (4.30-6.10); WHITE BLOOD COUNT 5.2 10^3/uL (4.0-10.0)
[2019-12-24 08:26] LABS: PLATELET COUNT, AUTOMATED 27 10^3/uL (150-450)
[2019-12-24 08:42] LABS: CHOLESTEROL RISK RATIO 2.727 (<5)
[2019-12-24] MEDS ORDERED: hydrALAZINE 20MG/ML 1ML VIAL (J0360 PER 20MG) IV ONE (08:45)
[2019-12-24] MEDS ORDERED: amLODIPine 5 MG TAB PO ONE (08:45)
[2019-12-24 08:48] LABS: HEMOGLOBIN A1c 5.3 %
[2019-12-24] MEDS: ACETAMINOPHEN TAB 650MG DOSE (2X325MG) PO PRN ×2 (13:43→20:00)
[2019-12-24 14:31] LABS: HEMATOCRIT 29.3 % (42.0-52.0); HEMOGLOBIN 10.1 g/dl (13.5-17.5); MEAN CORPUSCULAR HEMOGLOBIN 33.6 pg (27.0-33.0); MEAN CORPUSCULAR HGB CONC 34.5 g/dl (32.0-36.5); MEAN CORPUSCULAR VOLUME 97.3 fl (80.0-96.0); RED BLOOD COUNT 3.01 10^6/uL (4.30-6.10); WHITE BLOOD COUNT 6.4 10^3/uL (4.0-10.0)
[2019-12-24 14:33] LABS: PLATELET COUNT, AUTOMATED 26 10^3/uL (150-450)
[2019-12-24] MEDS: cefTRIAXone SOD 1 GM in D5W MINI-BAG PLUS 50 ML IV SCH (17:54)
--- NOTE | 2019-12-24 18:57 | IPNPDOC ---
Date Seen The patient was seen on 12/24/19. Progress Note SUBJECTIVE: The patient is growing gram-positive cocci in chains from one blood culture drawn on 12/23/2019. There was not a second set drawn. 2 sets of blood cultures were redrawn today. Wound culture was sent from a boil which was open on his back, few WBC's are seen on Gram stain cultures pending. Blood pressure was uncontrolled in the 180s systolic and medications were adjusted. He has had no bleeding since his banding of esophageal varices last evening. Platelets are low at 24 (chronic), will monitor. He denies chest pain, increased shortness of breath, nausea, vomiting or diarrhea. OBJECTIVE: VITAL SIGNS: Please see below PHYSICAL EXAMINATION: CONSTITUTIONAL: Very cold today, shivering on evaluation (stopped with blankets), resting comfortably, AAO x 3 EYES: PERRLA, EOM intact HENT, MOUTH: Normocephalic, atraumatic, moist mucous membranes NECK: SUPPLE, no JVD, no lymphadenopathy, no carotid bruit CV: Regular rate and rhythm, S1S2 normal, no murmurs/rubs/gallops RESPIRATORY: Clear to auscultation bilaterally, no rales/rhonchi/wheezes GI: BS positive in 4 quadrants, soft, nontender, nondistended, no rebound or guarding, no organomegaly : Deferred MUSCULOSKELETAL: Normal ROM. No cyanosis, clubbing, swelling, joint deformity, extremity edema INTEGUMENTARY: Multiple scabbed areas on skin over body. Large boil which is exposed on thoracic area of back. No rashes, no erythema NEUROLOGIC: Cranial Nerves II-XII are intact, no focal deficits CURRENT MEDICATIONS: Please see below LABORATORY DATA: Please see below IMAGING: No new imaging. ASSESSMENT: Patient is a 54-year-old male admitted for GI bleed secondary to esophageal varices rupture status post banding. PLAN: 1. GI bleed secondary to esophageal varices rupture status post banding. History of alcohol abuse. Grade 3, large varices status post banding done by GI. No new bleeding. Continue with octreotide drip, ceftriaxone, PPI IV twice a day, nothing by mouth. GI to follow. 2. Gram-positive cocci bacteremia. One set of blood cultures positive, redrawn to sets of repeat cultures today. WBC is within normal limits, he is afebrile. Follow-up cultures, daily CBC, monitor on telemetry for signs of SIRS. 3. HTN. Uncontrolled this AM but currently within goal. Started on CCB, given one dose of hydralazine. May benefit from lasix since was on IVFs overnight. 4. Alcohol abuse. No signs of alcohol withdrawal. Continue with CIWA protocol, ativan PRN, tele, thiamine, folate, MV. 5. Back boil. F/u wound culture and repeat blood cultures. Currently on Ceftriaxone with WBC wnl, afebrile. 6. GERD. PPI. 7. DVT prophylaxis. Contraindicated secondary to bleed. Continue with SCDs, teds. DISPOSITION: Currently admitted under ICU care. Plan is discharge home when medically improved. Hopeful for downgrading to PCU in the AM. VS, I&O, 24H, Fishbone Vital Signs/I&O Vital Signs Date Time Temp Pulse Resp B/P (MAP) Pulse Ox O2 Delivery O2 Flow Rate FiO2 12/24/19 16:00 99.9 82 20 136/70 (92) 97 Room Air 12/24/19 05:43 2.0 12/24/19 04:00 98 I&O- Last 24 Hours up to 6 AM 12/24/19 06:00 Intake Total 1502 ml Output Total 700 ml Balance 802 ml Laboratory Data 24H LABS Laboratory Tests 2 12/23/19 23:13: Nucleated Red Blood Cells % (auto) 0.0, Anion Gap 7L, Glomerular Filtration Rate > 60.0, Calcium Level 8.1L, Total Bilirubin 4.4H, Aspartate Amino Transf (AST/SG OT) 173H, Alanine Aminotransferase (ALT/SGPT) 62, Alkaline Phosphatase 91, Total Protein 7.4, Albumin 3.2, Albumin/Globulin Ratio 0.8 12/24/19 04:32: Nucleated Red Blood Cells % (auto) 0.0, Anion Gap 4L, Glomerular Filtration Rate > 60.0, Calcium Level 8.1L, Total Bilirubin 3.8H, Aspartate Amino Transf (AST/SGOT) 155H, Alanine Aminotransferase (ALT/SGPT) 57, Alkaline Phosphatase 82, Total Protein 7.1, Albumin 3.0L, Albumin/Globulin Ratio 0.7, Magnesium Level 1.7L 12/24/19 07:56: Nucleated Red Blood Cells % (auto) 0.0, Immature Granulocyte % (Auto) 0.4, Neutrophils (%) (Auto) 66.2H, Lymphocytes (%) (Auto) 20.8L, Monocytes (%) (Auto) 12.4H, Eosinophils (%) (Auto) 0.0, Basophils (%) (Auto) 0.2, Neutrophils # (Auto) 3.4, Lymphocytes # (Auto) 1.1L, Monocytes # (Auto) 0.6, Eosinophils # (Auto) 0.0, Basophils # (Auto) 0.0, Triglycerides Level 72, Total Cholesterol 120, LDL Cholesterol 62, Non-HDL Cholesterol (LDL + VLDL) 76, Total HDL Cholesterol 44, Cholesterol/HDL Ratio 2.727 12/24/19 07:57: Estimated Mean Plasma Glucose 105, Hemoglobin A1c 5.3 12/24/19 14:20: Nucleated Red Blood Cells % (auto) 0.0 CBC/BMP Laboratory Tests 12/23/19 23:13 12/24/19 04:32 12/24/19 07:56 12/24/19 14:20 Microbiology Microbiology 12/24/19 Gram Stain - Final, Resulted 12/24/19 Wound Culture, Resulted Pending 12/23/19 Blood Culture, Received Pending 12/23/19 Blood Culture, Received Pending 12/23/19 Respiratory Virus Panel (PCR) (ZEV) - Final, Complete 12/23/19 Blood Culture - Preliminary, Resulted Current Medications Current Medications Medications (Trade) Dose Ordered Sig/Darian Route PRN Reason Start Time Stop Time Status Last Admin Dose Admin Acetaminophen (Tylenol Tab) 650 mg Q6HP PRN PO PAIN / FEVER 12/24/19 13:30 12/24/19 13:43 Amlodipine Besylate (Norvasc) 5 mg DAILY PO 12/25/19 09:00 Amlodipine Besylate (Norvasc) 5 mg STAT STAT PO 12/24/19 05:55 12/24/19 05:59 DC 12/24/19 06:06 Ceftriaxone Sodium 1 gm/ Dextrose 50 ml @ 100 mls/hr Q24H IV 12/24/19 18:00 12/24/19 17:54 Folic Acid (Folic Acid) 1 mg DAILY PO 12/24/19 09:00 12/24/19 08:16 Home Med (Med Rec Complete!) ASDIRECTED XX 12/23/19 18:30 12/23/19 18:25 DC Lactated Ringer's 1,000 ml @ 100 mls/hr Q10H IV 12/23/19 21:45 12/23/19 22:44 DC 12/23/19 21:28 Lorazepam (Ativan) 2 mg ASDIRECTED PRN PO SEE PROTOCOL 12/23/19 22:30 Lorazepam (Ativan) 2 mg STAT STAT IV 12/23/19 16:32 12/23/19 16:33 DC 12/23/19 16:37 Lorazepam (Ativan) 2 mg STAT STAT IV 12/23/19 18:04 12/23/19 18:05 DC 12/23/19 18:30 Metoclopramide HCl (REGLAN INJection) 10 mg Q6HP PRN IV NAUSEA OR VOMITING 12/23/19 21:45 12/23/19 22:44 DC Multivitamins (Theragram-M) 1 tab DAILY PO 12/24/19 09:00 12/24/19 08:16 Octreotide Acetate 1200 mcg/ Sodium Chloride 240 ml @ 10 mls/hr Q24H IV 12/23/19 16:45 12/23/19 23:16 DC 12/23/19 17:44 Octreotide Acetate 1200 mcg/ Sodium Chloride 240 ml @ 10 mls/hr Q24H IV 12/23/19 23:15 12/23/19 23:27 Octreotide Acetate (SandoSTATIN) 50 mcg NOW STAT IV 12/23/19 16:40 12/23/19 16:46 DC 12/23/19 16:52 Ondansetron HCl (ZOFRAN INJection) 4 mg Q4HP PRN IV NAUSEA OR VOMITING 12/23/19 21:45 12/23/19 22:44 DC Pantoprazole Sodium 40 mg/ Dextrose 50 ml @ 10 mls/hr Q5H IV 12/23/19 16:45 12/23/19 23:15 DC 12/23/19 21:45 Pantoprazole Sodium 40 mg/ Dextrose 50 ml @ 10 mls/hr Q5H IV 12/23/19 23:15 12/24/19 17:54 Thiamine HCl (Thiamine HCl) 100 mg BID PO 12/23/19 21:00 12/26/19 09:01 12/24/19 08:16 Allergies Coded Allergies: No Known Allergies (Unverified , 04/15/15) Caroline Foster MD Dec 24, 2019 18:56
[2019-12-24] MEDS: OCTREOTIDE ACETATE 1,200 MCG in NS 238.8 ML IV SCH (19:46)
[2019-12-25] VITALS (23 sets, daily range): BP systolic 124–159; BP diastolic 70–93
[2019-12-25] MEDS: PANTOPRAZOLE SODIUM 40 MG in D5W 50 ML IV SCH ×2 (00:09→05:19)
[2019-12-25 05:06] LABS: BASO % 0.6 % (0.0-1.0); EOS # 0.1 10^3/uL (0.0-0.5); HEMATOCRIT 28.2 % (42.0-52.0); HEMOGLOBIN 9.5 g/dl (13.5-17.5); LYMPH # 1.1 10^3/uL (1.5-5.0); LYMPH % 23.2 % (24.0-44.0); MEAN CORPUSCULAR HEMOGLOBIN 33.2 pg (27.0-33.0); MEAN CORPUSCULAR HGB CONC 33.7 g/dl (32.0-36.5); MEAN CORPUSCULAR VOLUME 98.6 fl (80.0-96.0); MONO # 0.5 10^3/uL (0.0-0.8); MONO % 10.8 % (0.0-5.0); NEUTROPHILS # 3.2 10^3/uL (1.5-8.5); RED BLOOD COUNT 2.86 10^6/uL (4.30-6.10); WHITE BLOOD COUNT 4.9 10^3/uL (4.0-10.0)
[2019-12-25 05:10] LABS: PLATELET COUNT, AUTOMATED 26 10^3/uL (150-450)
[2019-12-25 05:25] LABS: ALBUMIN 2.9 GM/DL (3.2-5.2); ALT/SGPT 49 U/L (12-78); BILIRUBIN,TOTAL 5.2 MG/DL (0.2-1.0); BLOOD UREA NITROGEN 20 MG/DL (7-18); CALCIUM LEVEL 8.1 MG/DL (8.5-10.1); CARBON DIOXIDE LEVEL 28 MEQ/L (21-32); CHLORIDE LEVEL 107 MEQ/L (98-107); CREATININE FOR GFR 0.78 MG/DL (0.70-1.30); GLOMERULAR FILTRATION RATE > 60.0 (>56); GLUCOSE, FASTING 128 MG/DL (70-100); POTASSIUM SERUM 3.8 MEQ/L (3.5-5.1); SODIUM LEVEL 141 MEQ/L (136-145); TOTAL PROTEIN 6.7 GM/DL (6.4-8.2)
[2019-12-25] MEDS: MAG SULF 1GM/100ML (MAG RUN) 1 GM in IV 1 EA IV SCH ×2 (06:56→07:55)
[2019-12-25] MEDS: amLODIPine 5 MG TAB PO SCH (08:56)
[2019-12-25] MEDS: OXAZEPAM 10 MG CAP PO SCH ×2 (08:56→20:00)
[2019-12-25] MEDS: FOLIC ACID 1 MG TAB PO SCH (08:56)
[2019-12-25] MEDS: MULTIVITAMINS/MINERALS THERAP 1 TAB PO SCH (08:57)
[2019-12-25] MEDS: PANTOPRAZOLE 40MG TAB (PROTONIX) PO SCH (08:57)
[2019-12-25] MEDS: THIAMINE 100 MG TAB PO SCH ×2 (08:57→20:00)
--- NOTE | 2019-12-25 11:40 | IPNPDOC ---
Text Note Date of Service The patient was seen on 12/25/19. NOTE Subjective: Patient is a 54-year-old male with a PMHx Alcohol Abuse, Suspected cirrhosis, HTN, DLP, GERD who presented to the emergency room with profound hematemesis. Patient was urgently taken to the or for EGD which had revealed 4 columns of grade 3 esophageal varices with evidence of recent bleeding requiring a total of 7 bands. Patient was called by the hospitalist service when he was recovering in the PACU. Patient was admitted to the ICU. Patient was seen and examined at the bedside. Currently, patient reports that he's feeling fine. He does report that he's hungry. Denies any nausea, vomiting, abdominal pain, diarrhea, or urinary discomfort. Objective: Vitals (See below) General: Lying in bed, appears comfortable, AAOx3 HEENT: NC, AT CVS: RRR, +S1S2 Lungs: Fair air entry b/l, -w/r/r Abdomen: Soft, ND, NT Extremities: - Edema, - Calf tenderness Assessment and plan: Acute blood anemia - 2/2 upper GI bleed - 2/2 esophageal varices bleeding - Currently, patient reports he has had significant improvement of his symptoms - No recurrence of hematemesis - Hemodynamically stable and afebrile - Hemoglobin has remained stable; will continue to trend - Will adjust PPI drip to oral medications - c/w Octreotide drip (Day #2) - Will advance diet to clear liquids only at this time - Gastroenterology on consult; appreciate their input Gram positive (1 of 1 bottle) - possibly 2/2 contamination - Patient hemodynamic stable and afebrile - Blood culture 12/22: 1 bottle positive for gram positive cocci; awaiting speciation - Blood culture 12/22: No growth - Repeat blood cultures pending Cirrhosis - Patient does not reveal any evidence of ascites - Will likely require Propranolol for esophageal variceal bleed risk reduction - c/w [id number] for SBP prophylaxis given his recent variceal bleed Thrombocytopenia - likely 2/2 alcohol - No further episodes of bleeding - Counts remain stable Transaminitis - likely 2/2 alcohol - AST / ALT elevated at 2/3:1 ratio - Has been trending down - c/w alcohol cessation HTN - Likely secondary to alcohol withdrawal - BP improved currently - c/w Amlodipine Alcohol withdrawal - Patient has been on CIWA protocol - c/w Ativan PRN - Will start low dose serax BID Alcohol abuse / dependence - Will continue with multivitamins, thiamine and folate - c/w alcohol cessation / counseled GI prophylaxis - c/w PPI DVT prophylaxis - c/w TEDs/Sequentials VS,Fishbone, I+O VS, Fishbone, I+O Laboratory Tests 12/24/19 14:20 12/25/19 04:50 Vital Signs Date Time Temp Pulse Resp B/P (MAP) Pulse Ox O2 Delivery O2 Flow Rate FiO2 12/25/19 09:00 70 147/80 (102) 98 Room Air 12/25/19 08:00 99.8 20 12/24/19 05:43 2.0 12/24/19 04:00 98 I&O- Last 24 Hours up to 6 AM 12/25/19 06:00 Intake Total 690 ml Output Total 925 ml Balance -235 ml ABBY GRIMES MD Dec 25, 2019 11:40
[2019-12-25 12:09] LABS: HEMATOCRIT 29.1 % (42.0-52.0); HEMOGLOBIN 9.7 g/dl (13.5-17.5); MEAN CORPUSCULAR HEMOGLOBIN 32.8 pg (27.0-33.0); MEAN CORPUSCULAR HGB CONC 33.3 g/dl (32.0-36.5); MEAN CORPUSCULAR VOLUME 98.3 fl (80.0-96.0); RED BLOOD COUNT 2.96 10^6/uL (4.30-6.10); WHITE BLOOD COUNT 5.5 10^3/uL (4.0-10.0)
[2019-12-25 12:51] LABS: PLATELET COUNT, AUTOMATED 29 10^3/uL (150-450)
[2019-12-25 18:14] LABS: HEMATOCRIT 31.8 % (42.0-52.0); HEMOGLOBIN 10.5 g/dl (13.5-17.5); MEAN CORPUSCULAR HEMOGLOBIN 33.1 pg (27.0-33.0); MEAN CORPUSCULAR VOLUME 100.3 fl (80.0-96.0); RED BLOOD COUNT 3.17 10^6/uL (4.30-6.10); WHITE BLOOD COUNT 7.9 10^3/uL (4.0-10.0)
[2019-12-25 18:15] LABS: PLATELET COUNT, AUTOMATED 44 10^3/uL (150-450)
[2019-12-25] MEDS: cefTRIAXone SOD 1 GM in D5W MINI-BAG PLUS 50 ML IV SCH (18:26)
[2019-12-25] MEDS: OCTREOTIDE ACETATE 1,200 MCG in NS 238.8 ML IV SCH (19:29)
[2019-12-25] MEDS: ACETAMINOPHEN TAB 650MG DOSE (2X325MG) PO PRN (19:59)
[2019-12-25] MEDS ORDERED: LORazepam 1 MG TAB As Ordered ONE (22:35)
[2019-12-25] MEDS ORDERED: LORazepam 1 MG TAB PO ONE (22:45)
[2019-12-26] VITALS (21 sets, daily range): BP systolic 90–170; BP diastolic 54–89
[2019-12-26 00:35] LABS: HEMATOCRIT 30.5 % (42.0-52.0); HEMOGLOBIN 10.5 g/dl (13.5-17.5); MEAN CORPUSCULAR HEMOGLOBIN 34.1 pg (27.0-33.0); MEAN CORPUSCULAR HGB CONC 34.4 g/dl (32.0-36.5); RED BLOOD COUNT 3.08 10^6/uL (4.30-6.10); WHITE BLOOD COUNT 6.7 10^3/uL (4.0-10.0)
[2019-12-26 00:36] LABS: PLATELET COUNT, AUTOMATED 40 10^3/uL (150-450)
[2019-12-26] MEDS ORDERED: LORazepam 2 MG/ML VIAL IV STA (03:47)
[2019-12-26] MEDS ORDERED: LORazepam 2 MG/ML VIAL As Ordered ONE (03:51)
[2019-12-26] MEDS: dexmedeTOMidine 200 MCG in IV 1 EA IV SCH ×2 (04:07→10:07)
[2019-12-26 04:41] LABS: BASO % 0.5 % (0.0-1.0); EOS # 0.2 10^3/uL (0.0-0.5); EOS % 2.7 % (0.0-3.0); HEMATOCRIT 30.1 % (42.0-52.0); HEMOGLOBIN 10.1 g/dl (13.5-17.5); LYMPH # 1.4 10^3/uL (1.5-5.0); LYMPH % 24.4 % (24.0-44.0); MEAN CORPUSCULAR HEMOGLOBIN 33.1 pg (27.0-33.0); MEAN CORPUSCULAR HGB CONC 33.6 g/dl (32.0-36.5); MEAN CORPUSCULAR VOLUME 98.7 fl (80.0-96.0); MONO # 0.7 10^3/uL (0.0-0.8); MONO % 12.1 % (0.0-5.0); NEUTROPHILS # 3.4 10^3/uL (1.5-8.5); NEUTROPHILS % 59.8 % (36.0-66.0); RED BLOOD COUNT 3.05 10^6/uL (4.30-6.10); WHITE BLOOD COUNT 5.6 10^3/uL (4.0-10.0)
[2019-12-26 04:44] LABS: PLATELET COUNT, AUTOMATED 35 10^3/uL (150-450)
[2019-12-26 05:17] LABS: ALBUMIN 3.1 GM/DL (3.2-5.2); ALT/SGPT 51 U/L (12-78); BILIRUBIN,TOTAL 5.2 MG/DL (0.2-1.0); BLOOD UREA NITROGEN 14 MG/DL (7-18); CALCIUM LEVEL 8.1 MG/DL (8.5-10.1); CARBON DIOXIDE LEVEL 26 MEQ/L (21-32); CHLORIDE LEVEL 103 MEQ/L (98-107); CREATININE FOR GFR 0.74 MG/DL (0.70-1.30); GLOMERULAR FILTRATION RATE > 60.0 (>56); GLUCOSE, FASTING 108 MG/DL (70-100); MAGNESIUM LEVEL 1.8 MG/DL (1.8-2.4); POTASSIUM SERUM 3.9 MEQ/L (3.5-5.1); SODIUM LEVEL 138 MEQ/L (136-145); TOTAL PROTEIN 7.2 GM/DL (6.4-8.2)
[2019-12-26] MEDS ORDERED: OXAZEPAM 10 MG CAP PO SCH (06:00)
[2019-12-26] MEDS ORDERED: OXAZEPAM 10 MG CAP PO ONE (08:15)
--- NOTE | 2019-12-26 08:43 | IPNPDOC ---
Text Note Date of Service The patient was seen on 12/26/19. NOTE Subjective: Patient is a 54-year-old male with a PMHx Alcohol Abuse, Suspected cirrhosis, HTN, DLP, GERD who presented to the emergency room with profound hematemesis. Patient was urgently taken to the or for EGD which had revealed 4 columns of grade 3 esophageal varices with evidence of recent bleeding requiring a total of 7 bands. Patient was called by the hospitalist service when he was recovering in the PACU. Patient was admitted to the ICU. Patient was seen and examined at the bedside. This morning patient was confused, overnight, patient was started on a Precedex drip for worsening alcohol withdrawal. . Currently, patient is in bed and had moments where he was trying to leave. . Currently, he denies any pain, nausea, vomiting, belly pain, diarrhea or urinary discomfort. Objective: Vitals (See below) General: Lying in bed, appears comfortable, awake / alert HEENT: NC, AT CVS: Bradycardic, +S1S2 Lungs: Fair air entry b/l, no appreciable wheezing, rhonchi or crackles Abdomen: Soft, nondistended, nontender Extremities: Lower extremity are without any edema, - Calf tenderness Assessment and plan: Acute blood anemia - 2/2 upper GI bleed - 2/2 esophageal varices bleeding - Currently, patient reports he has had significant improvement of his symptoms - No recurrence of hematemesis - Hemodynamically stable and afebrile - Hemoglobin has remained stable; will continue to trend - Will adjust PPI drip to oral medications - c/w Octreotide drip (Day #3) - c/w clear liquids diet - Gastroenterology on consult; appreciate their input Alcohol withdrawal - Overnight, patient appeared to have worsening withdrawal symptoms - Was started on Precedex drip - Patient has been on CIWA protocol - c/w Ativan PRN - Will increase dose of serax; and plan on tapering down Precedex Gram positive (1 of 1 bottle) - possibly 2/2 contamination - Patient hemodynamic stable and afebrile - Blood culture 12/22: 1 bottle positive for gram positive cocci; awaiting speciation - Blood culture 12/22: No growth at 28 hours Cirrhosis - Patient does not reveal any evidence of ascites - Will likely require Propranolol for esophageal variceal bleed risk reduction - c/w ceftriaxone for SBP prophylaxis given his recent variceal bleed Thrombocytopenia - likely 2/2 alcohol - No further episodes of bleeding - Counts remain stable Transaminitis - likely 2/2 alcohol - AST / ALT elevated at 2/3:1 ratio - Has been trending down - c/w alcohol cessation HTN - Likely secondary to alcohol withdrawal - BP improved currently - c/w Amlodipine Alcohol abuse / dependence - Will continue with multivitamins, thiamine and folate - c/w alcohol cessation / counseled GI prophylaxis - c/w PPI DVT prophylaxis - c/w TEDs/Sequentials VS,Fishbone, I+O VS, Fishbone, I+O Laboratory Tests 12/25/19 11:57 12/25/19 17:59 12/25/19 23:54 12/26/19 04:24 Vital Signs Date Time Temp Pulse Resp B/P (MAP) Pulse Ox O2 Delivery O2 Flow Rate FiO2 12/26/19 05:00 56 120/73 (89) 12/26/19 00:00 99.5 18 98 Room Air 12/24/19 05:43 2.0 12/24/19 04:00 98 I&O- Last 24 Hours up to 6 AM 12/26/19 06:00 Intake Total 2518.4 ml Output Total 900 ml Balance 1618.4 ml ABBY GRIMES MD Dec 26, 2019 08:43
[2019-12-26] MEDS: amLODIPine 5 MG TAB PO SCH (09:00)
[2019-12-26] MEDS: FOLIC ACID 1 MG TAB PO SCH (09:17)
[2019-12-26] MEDS: PANTOPRAZOLE 40MG TAB (PROTONIX) PO SCH (09:17)
[2019-12-26] MEDS: MULTIVITAMINS/MINERALS THERAP 1 TAB PO SCH (09:17)
[2019-12-26] MEDS: THIAMINE 100 MG TAB PO SCH (09:17)
[2019-12-26] MEDS: OXAZEPAM 15 MG CAP PO SCH ×3 (12:08→23:46)
[2019-12-26 12:19] LABS: BASO % 0.6 % (0.0-1.0); EOS # 0.2 10^3/uL (0.0-0.5); EOS % 3.3 % (0.0-3.0); HEMATOCRIT 28.3 % (42.0-52.0); HEMOGLOBIN 9.5 g/dl (13.5-17.5); LYMPH # 1.5 10^3/uL (1.5-5.0); LYMPH % 27.5 % (24.0-44.0); MEAN CORPUSCULAR HEMOGLOBIN 33.3 pg (27.0-33.0); MEAN CORPUSCULAR HGB CONC 33.6 g/dl (32.0-36.5); MEAN CORPUSCULAR VOLUME 99.3 fl (80.0-96.0); MONO # 0.6 10^3/uL (0.0-0.8); MONO % 11.9 % (0.0-5.0); RED BLOOD COUNT 2.85 10^6/uL (4.30-6.10); WHITE BLOOD COUNT 5.4 10^3/uL (4.0-10.0)
[2019-12-26 12:43] LABS: PLATELET COUNT, AUTOMATED 40 10^3/uL (150-450)
[2019-12-26] MEDS: cefTRIAXone SOD 1 GM in D5W MINI-BAG PLUS 50 ML IV SCH (17:57)
[2019-12-26 18:04] LABS: BASO % 0.5 % (0.0-1.0); EOS # 0.2 10^3/uL (0.0-0.5); EOS % 3.3 % (0.0-3.0); HEMATOCRIT 31.2 % (42.0-52.0); HEMOGLOBIN 10.4 g/dl (13.5-17.5); LYMPH # 1.4 10^3/uL (1.5-5.0); LYMPH % 25.7 % (24.0-44.0); MEAN CORPUSCULAR HEMOGLOBIN 33.7 pg (27.0-33.0); MEAN CORPUSCULAR HGB CONC 33.3 g/dl (32.0-36.5); MONO # 0.8 10^3/uL (0.0-0.8); MONO % 13.9 % (0.0-5.0); NEUTROPHILS # 3.1 10^3/uL (1.5-8.5); NEUTROPHILS % 56.1 % (36.0-66.0); RED BLOOD COUNT 3.09 10^6/uL (4.30-6.10); WHITE BLOOD COUNT 5.5 10^3/uL (4.0-10.0)
[2019-12-26 18:05] LABS: PLATELET COUNT, AUTOMATED 38 10^3/uL (150-450)
[2019-12-26] MEDS: OCTREOTIDE ACETATE 1,200 MCG in NS 238.8 ML IV SCH (19:58)
[2019-12-27] VITALS (11 sets, daily range): BP systolic 117–135; BP diastolic 58–75
[2019-12-27 00:16] LABS: BASO # 0.1 10^3/uL (0.0-0.2); BASO % 0.9 % (0.0-1.0); EOS # 0.2 10^3/uL (0.0-0.5); HEMATOCRIT 31.7 % (42.0-52.0); HEMOGLOBIN 10.4 g/dl (13.5-17.5); LYMPH # 1.3 10^3/uL (1.5-5.0); LYMPH % 23.3 % (24.0-44.0); MEAN CORPUSCULAR HEMOGLOBIN 33.3 pg (27.0-33.0); MEAN CORPUSCULAR HGB CONC 32.8 g/dl (32.0-36.5); MEAN CORPUSCULAR VOLUME 101.6 fl (80.0-96.0); MONO # 0.6 10^3/uL (0.0-0.8); NEUTROPHILS # 3.4 10^3/uL (1.5-8.5); NEUTROPHILS % 60.3 % (36.0-66.0); RED BLOOD COUNT 3.12 10^6/uL (4.30-6.10); WHITE BLOOD COUNT 5.7 10^3/uL (4.0-10.0)
[2019-12-27 00:24] LABS: PLATELET COUNT, AUTOMATED 42 10^3/uL (150-450)
[2019-12-27 04:23] LABS: BASO % 0.8 % (0.0-1.0); EOS # 0.2 10^3/uL (0.0-0.5); EOS % 3.8 % (0.0-3.0); HEMATOCRIT 31.6 % (42.0-52.0); HEMOGLOBIN 10.4 g/dl (13.5-17.5); LYMPH # 1.3 10^3/uL (1.5-5.0); LYMPH % 23.9 % (24.0-44.0); MEAN CORPUSCULAR HEMOGLOBIN 32.5 pg (27.0-33.0); MEAN CORPUSCULAR HGB CONC 32.9 g/dl (32.0-36.5); MEAN CORPUSCULAR VOLUME 98.8 fl (80.0-96.0); MONO # 0.6 10^3/uL (0.0-0.8); MONO % 10.5 % (0.0-5.0); NEUTROPHILS # 3.2 10^3/uL (1.5-8.5); NEUTROPHILS % 60.6 % (36.0-66.0); WHITE BLOOD COUNT 5.2 10^3/uL (4.0-10.0)
[2019-12-27 04:27] LABS: PLATELET COUNT, AUTOMATED 44 10^3/uL (150-450)
[2019-12-27 04:48] LABS: ALBUMIN 2.9 GM/DL (3.2-5.2); ALT/SGPT 48 U/L (12-78); BILIRUBIN,TOTAL 4.3 MG/DL (0.2-1.0); BLOOD UREA NITROGEN 15 MG/DL (7-18); CARBON DIOXIDE LEVEL 25 MEQ/L (21-32); CHLORIDE LEVEL 104 MEQ/L (98-107); CREATININE FOR GFR 0.67 MG/DL (0.70-1.30); GLOMERULAR FILTRATION RATE > 60.0 (>56); GLUCOSE, FASTING 99 MG/DL (70-100); MAGNESIUM LEVEL 1.8 MG/DL (1.8-2.4); POTASSIUM SERUM 3.8 MEQ/L (3.5-5.1); SODIUM LEVEL 139 MEQ/L (136-145); TOTAL PROTEIN 6.8 GM/DL (6.4-8.2)
[2019-12-27] MEDS: OXAZEPAM 15 MG CAP PO SCH (06:11)
[2019-12-27] MEDS: PANTOPRAZOLE 40MG TAB (PROTONIX) PO SCH (07:53)
[2019-12-27] MEDS: MULTIVITAMINS/MINERALS THERAP 1 TAB PO SCH (07:53)
[2019-12-27] MEDS: FOLIC ACID 1 MG TAB PO SCH (07:53)
[2019-12-27] MEDS: amLODIPine 5 MG TAB PO SCH (07:54)
--- NOTE | 2019-12-27 10:55 | IPNPDOC ---
Text Note Date of Service The patient was seen on 12/27/19. NOTE Subjective: Patient is a 54-year-old male with a PMHx Alcohol Abuse, Suspected cirrhosis, HTN, DLP, GERD who presented to the emergency room with profound hematemesis. Patient was urgently taken to the or for EGD which had revealed 4 columns of grade 3 esophageal varices with evidence of recent bleeding requiring a total of 7 bands. Patient was called by the hospitalist service when he was recovering in the PACU. Patient was admitted to the ICU. Patient was seen and examined at the bedside. Patient is fully oriented to person, place and time. Denies any nausea, vomiting, pain, diarrhea, or urinary discomfort. Denies chest pain, shortness of breath or palpitations Objective: Vitals (See below) General: Lying in bed, appears comfortable, oriented 3 HEENT: NC, AT CVS: Bradycardic, +S1S2 Lungs: Fair air entry b/l, auscultation is free of rhonchi, crackles or wheezing Abdomen: Remains soft without evidence of distention or tenderness Extremities: No edema appreciated. Lower extremities, - Calf tenderness Assessment and plan: Acute blood anemia - 2/2 upper GI bleed - 2/2 esophageal varices bleeding - No further episodes of hematemesis or dark tarry stools - Hemodynamically stable and afebrile - Hemoglobin has remained stable; - Will adjust PPI drip to oral medications - Will discontinue Octreotide drip (Day #4) - Will advance diet to mechanical soft diet - Gastroenterology on consult; appreciate their input Alcohol withdrawal - Currently is fully oriented to person, place and time - Discontinued Precedex drip - Patient has been on CIWA protocol - c/w Ativan PRN - c/w serax; will readjust dosing Gram positive (1 of 1 bottle) - possibly 2/2 contamination - Patient hemodynamic stable and afebrile - Blood culture 12/22: 1 bottle positive for gram positive cocci; awaiting speciation - Blood culture 12/22: No growth at 72 hours Cirrhosis - Patient does not reveal any evidence of ascites - Will likely require Propranolol for esophageal variceal bleed risk reduction - Patient is an episode of bradycardia; will hold off on starting propranolol at this time - c/w ceftriaxone for SBP prophylaxis given his recent variceal bleed Thrombocytopenia - likely 2/2 alcohol - No further episodes of bleeding - Counts remain stable Transaminitis - likely 2/2 alcohol - AST / ALT elevated at 2/3:1 ratio - Has been trending down - c/w alcohol cessation HTN - Likely secondary to alcohol withdrawal - BP well controlled - c/w Amlodipine Alcohol abuse / dependence - Will continue with multivitamins, thiamine and folate - c/w alcohol cessation / counseled GI prophylaxis - c/w PPI DVT prophylaxis - c/w TEDs/Sequentials VS,Fishbone, I+O VS, Fishbone, I+O Laboratory Tests 12/26/19 11:48 12/26/19 17:54 12/26/19 23:51 12/27/19 04:04 Vital Signs Date Time Temp Pulse Resp B/P (MAP) Pulse Ox O2 Delivery O2 Flow Rate FiO2 12/27/19 08:00 88 127/73 12/27/19 06:00 12 99 Room Air 12/27/19 04:00 98.4 12/24/19 05:43 2.0 12/24/19 04:00 98 I&O- Last 24 Hours up to 6 AM 12/27/19 06:00 Intake Total 1350 ml Output Total 1150 ml Balance 200 ml ABBY GRIMES MD Dec 27, 2019 10:55
[2019-12-27] MEDS: OXAZEPAM 10 MG CAP PO SCH ×3 (12:15→23:26)
[2019-12-27] MEDS: cefTRIAXone SOD 1 GM in D5W MINI-BAG PLUS 50 ML IV SCH (18:20)
[2019-12-28] VITALS: BP 143/76
[2019-12-28 04:00] VITALS: BP 117/61
[2019-12-28 05:37] LABS: HEMOGLOBIN 9.8 g/dl (13.5-17.5); MEAN CORPUSCULAR HEMOGLOBIN 33.2 pg (27.0-33.0); MEAN CORPUSCULAR HGB CONC 33.8 g/dl (32.0-36.5); MEAN CORPUSCULAR VOLUME 98.3 fl (80.0-96.0); RED BLOOD COUNT 2.95 10^6/uL (4.30-6.10); WHITE BLOOD COUNT 6.7 10^3/uL (4.0-10.0)
[2019-12-28] MEDS: OXAZEPAM 10 MG CAP PO SCH ×3 (05:39→22:29)
[2019-12-28 05:40] LABS: PLATELET COUNT, AUTOMATED 59 10^3/uL (150-450)
[2019-12-28 05:51] LABS: BLOOD UREA NITROGEN 13 MG/DL (7-18); CALCIUM LEVEL 8.3 MG/DL (8.5-10.1); CARBON DIOXIDE LEVEL 25 MEQ/L (21-32); CHLORIDE LEVEL 106 MEQ/L (98-107); CREATININE FOR GFR 0.79 MG/DL (0.70-1.30); GLOMERULAR FILTRATION RATE > 60.0 (>56); GLUCOSE, FASTING 103 MG/DL (70-100); POTASSIUM SERUM 3.6 MEQ/L (3.5-5.1); SODIUM LEVEL 139 MEQ/L (136-145)
[2019-12-28 08:00] VITALS: BP 117/71
[2019-12-28] MEDS: PANTOPRAZOLE 40MG TAB (PROTONIX) PO SCH (08:22)
[2019-12-28] MEDS: FOLIC ACID 1 MG TAB PO SCH (08:22)
[2019-12-28] MEDS: amLODIPine 5 MG TAB PO SCH (08:22)
[2019-12-28] MEDS: MULTIVITAMINS/MINERALS THERAP 1 TAB PO SCH (08:22)
[2019-12-28] MEDS ORDERED: SLF 3 ML SYR IV PRN (08:30)
--- NOTE | 2019-12-28 11:27 | IPNPDOC ---
Text Note Date of Service The patient was seen on 12/28/19. NOTE Subjective: Patient is a 54-year-old male with a PMHx Alcohol Abuse, Suspected cirrhosis, HTN, DLP, GERD who presented to the emergency room with profound hematemesis. Patient was urgently taken to the or for EGD which had revealed 4 columns of grade 3 esophageal varices with evidence of recent bleeding requiring a total of 7 bands. Patient was called by the hospitalist service when he was recovering in the PACU. Patient was admitted to the ICU. Patient was seen and examined at the bedside. . Patient reports that he's doing well. Patient was sitting up on the couch counting his money. Patient denied nausea, vomiting, abdominal pain, diarrhea, or urinary discomfort. Denies any shortness of breath or cough. Objective: Vitals (See below) General: Sitting up in couch appears comfortable, oriented to person, place and time HEENT: NC, AT CVS: RRR, +S1S2 Lungs: Fair air entry b/l, does not appear to be any auscultated wheezing, crackles or rhonchi Abdomen: Remains soft, Nondistended, without tenderness Extremities: LE without edema, - Calf tenderness Assessment and plan: Acute blood anemia - 2/2 upper GI bleed - 2/2 esophageal varices bleeding - Has not expense any vomiting of blood or any dark stools - Hemodynamically stable and afebrile - Hemoglobin has remained stable; has not required transfusions - c/w Protonix PO, s/p Drip - s/p Octreotide drip (4 days total ) - Will advance diet; 2g sodium diet - Gastroenterology on consult; appreciate their input Alcohol withdrawal - AAOx3 - s/p Precedex drip - Patient has been on CIWA protocol - c/w Ativan PRN - Will reduce frequency of Serax today; will need to continue tapering down Gram positive (1 of 1 bottle with Gamella morbillorum) - likely 2/2 contamination - Patient hemodynamic stable and afebrile - Blood culture 12/22: 1 bottle positive for Gamella morbillorum - Blood culture 12/22: (2 of 2 bottles0 No growth at 72 hours Cirrhosis - Patient does not reveal any evidence of ascites - Will likely require Propranolol for esophageal variceal bleed risk reduction - Patient is an episode of bradycardia; will hold off on starting propranolol at this time - c/w ceftriaxone for SBP prophylaxis given his recent variceal bleed Thrombocytopenia - likely 2/2 alcohol - No further episodes of bleeding - Counts remain stable Transaminitis - likely 2/2 alcohol - AST / ALT elevated at 2/3:1 ratio - Has been trending down - c/w alcohol cessation HTN - Likely secondary to alcohol withdrawal - BP well controlled - c/w Amlodipine Alcohol abuse / dependence - Will continue with multivitamins, thiamine and folate - c/w alcohol cessation / counseled GI prophylaxis - c/w PPI DVT prophylaxis - c/w TEDs/Sequentials Disposition: - c/w PT and OT - Will taper down Serax - Anticipate DC within 24-48 hours VS,Fishbone, I+O VS, Fishbone, I+O Laboratory Tests 12/28/19 05:21 Vital Signs Date Time Temp Pulse Resp B/P (MAP) Pulse Ox O2 Delivery O2 Flow Rate FiO2 12/28/19 08:22 69 117/71 12/28/19 08:00 98.4 20 97 12/28/19 04:00 Room Air 12/24/19 05:43 2.0 12/24/19 04:00 98 I&O- Last 24 Hours up to 6 AM 12/28/19 06:00 Intake Total 1240 ml Output Total 650 ml Balance 590 ml ABBY GRIMES MD Dec 28, 2019 11:27
[2019-12-28 12:00] VITALS: BP 130/71
[2019-12-28] MEDS: SLF 3 ML SYR IV SCH ×2 (13:55→22:29)
[2019-12-28 16:00] VITALS: BP 134/71
[2019-12-28] MEDS: cefTRIAXone SOD 1 GM in D5W MINI-BAG PLUS 50 ML IV SCH (17:38)
[2019-12-28 20:00] VITALS: BP 131/67
[2019-12-29 00:08] VITALS: BP 110/61
[2019-12-29] MEDS: ACETAMINOPHEN TAB 650MG DOSE (2X325MG) PO PRN (00:29)
[2019-12-29 04:00] VITALS: BP 112/54
[2019-12-29] MEDS: SLF 3 ML SYR IV SCH ×3 (05:11→21:02)
[2019-12-29] MEDS: OXAZEPAM 10 MG CAP PO SCH ×2 (05:12→21:01)
[2019-12-29 06:56] LABS: HEMATOCRIT 29.5 % (42.0-52.0); HEMOGLOBIN 9.9 g/dl (13.5-17.5); MEAN CORPUSCULAR HEMOGLOBIN 33.6 pg (27.0-33.0); MEAN CORPUSCULAR HGB CONC 33.6 g/dl (32.0-36.5); PLATELET COUNT, AUTOMATED 61 10^3/uL (150-450); RED BLOOD COUNT 2.95 10^6/uL (4.30-6.10)
[2019-12-29 07:18] LABS: BLOOD UREA NITROGEN 12 MG/DL (7-18); CALCIUM LEVEL 8.2 MG/DL (8.5-10.1); CARBON DIOXIDE LEVEL 26 MEQ/L (21-32); CHLORIDE LEVEL 107 MEQ/L (98-107); CREATININE FOR GFR 0.75 MG/DL (0.70-1.30); GLOMERULAR FILTRATION RATE > 60.0 (>56); GLUCOSE, FASTING 91 MG/DL (70-100); POTASSIUM SERUM 3.5 MEQ/L (3.5-5.1); SODIUM LEVEL 140 MEQ/L (136-145)
[2019-12-29 08:00] VITALS: BP 109/68
[2019-12-29] MEDS: PROPRANOLOL 10 MG TAB PO SCH ×3 (09:00→21:01)
[2019-12-29] MEDS: FOLIC ACID 1 MG TAB PO SCH (10:00)
[2019-12-29] MEDS: PANTOPRAZOLE 40MG TAB (PROTONIX) PO SCH (10:01)
[2019-12-29] MEDS: MULTIVITAMINS/MINERALS THERAP 1 TAB PO SCH (10:01)
[2019-12-29] MEDS: amLODIPine 5 MG TAB PO SCH (10:01)
--- NOTE | 2019-12-29 10:54 | IPNPDOC ---
Date Seen The patient was seen on 12/29/19. Progress Note SUBJECTIVE: 54-year-old male with past medical history of alcohol abuse, likely cirrhosis, hypertension, hyperlipidemia and GERD was admitted for upper GI bleed from esophageal varices. Patient underwent emergent EGD with banding of esophageal varices, no bleeding since. Patient has been hemodynamically stable throughout hospitalization, now tolerating his diet, asymptomatic in the morning, without any complaints at this time. Patient has been working with physical therapy and requires one more session prior to discharge. Patient denies any chest pain, nausea, vomiting, diarrhea or constipation. 10 point review of system is negative except for above PHYSICAL EXAMINATION: VITAL SIGNS: Please see below. GENERAL: No distress HEENT: Normocephalic, atraumatic, moist mucous membranes NECK: Supple CARDIOVASCULAR EXAMINATION: S1, S2, no murmurs RESPIRATORY EXAMINATION: Scattered rhonchi, no wheezing ABDOMINAL EXAMINATION: Soft, nontender, nondistended, positive bowel sounds EXTREMITIES: Range of motion intact SKIN: No rash NEUROLOGICAL EXAMINATION: Alert and oriented 3, no focal deficits PSYCHIATRIC EXAMINATION: Calm and cooperative LABORATORY DATA, IMAGING STUDIES, MICROBIOLOGY: Please see below. ASSESSMENT AND PLAN: 54-year-old male with past medical history of alcohol abuse, likely cirrhosis, hypertension, hyperlipidemia and GERD is admitted for upper GI bleed from esophageal varices and alcohol withdrawal. PROBLEMS: 1. Upper GI bleed: From esophageal varices, status post EGD and banding, PPI/octreotide drips have been discontinued, continue PPI and ceftriaxone. 2. Alcohol abuse: undiagnosed liver cirrhosis, status post CIWA protocol, currently asymptomatic, titrated down oxazepam, can likely discontinue tomorrow. 3. Hypertension: Continue Norvasc. 4. GERD: Continue PPI DVT prophylaxis: SCDs GI prophylaxis: PPI VS, I&O, 24H, Fishbone Vital Signs/I&O Vital Signs Date Time Temp Pulse Resp B/P (MAP) Pulse Ox O2 Delivery O2 Flow Rate FiO2 12/29/19 10:01 68 112/60 12/29/19 08:00 98.3 17 99 Room Air 12/24/19 05:43 2.0 12/24/19 04:00 98 I&O- Last 24 Hours up to 6 AM 12/29/19 06:00 Intake Total 1610 ml Output Total 750 ml Balance 860 ml Laboratory Data 24H LABS Laboratory Tests 2 12/29/19 06:40: Nucleated Red Blood Cells % (auto) 0.0, Immature Platelet Fraction 4.1, Anion Gap 7L, Glomerular Filtration Rate > 60.0, Calcium Level 8.2L CBC/BMP Laboratory Tests 12/29/19 06:40 Microbiology Microbiology 12/24/19 Gram Stain - Final, Resulted 12/24/19 Wound Culture, Resulted Pending 12/23/19 Blood Culture - Final, Complete NO GROWTH AFTER 5 DAYS 12/23/19 Blood Culture - Final, Complete NO GROWTH AFTER 5 DAYS 12/23/19 Respiratory Virus Panel (PCR) (ZEV) - Final, Complete 12/23/19 Blood Culture - Final, Complete Gemella Morbillorum KAYLA WALL MD Dec 29, 2019 10:54
[2019-12-29] MEDS ORDERED: POTASSIUM CHLORIDE 10 MEQ SR TABLET PO ONE (11:00)
[2019-12-29] MEDS ORDERED: OXAZEPAM 10 MG CAP PO ONE (11:00)
[2019-12-29 12:00] VITALS: BP 123/79
[2019-12-29 16:00] VITALS: BP 126/66
[2019-12-29] MEDS: cefTRIAXone SOD 1 GM in D5W MINI-BAG PLUS 50 ML IV SCH (18:13)
[2019-12-29 20:00] VITALS: BP 126/65
[2019-12-30] VITALS: BP 125/75
[2019-12-30 04:00] VITALS: BP 134/74
[2019-12-30] MEDS: SLF 3 ML SYR IV SCH (04:26)
[2019-12-30 08:00] VITALS: BP 128/77
[2019-12-30 10:06] VITALS: BP 128/77
[2019-12-30] MEDS: PROPRANOLOL 10 MG TAB PO SCH (10:06)
[2019-12-30] MEDS: MULTIVITAMINS/MINERALS THERAP 1 TAB PO SCH (10:06)
[2019-12-30] MEDS: FOLIC ACID 1 MG TAB PO SCH (10:06)
[2019-12-30] MEDS: PANTOPRAZOLE 40MG TAB (PROTONIX) PO SCH (10:06)
[2019-12-30] MEDS: OXAZEPAM 10 MG CAP PO SCH (10:07)
[2019-12-30] MEDS: amLODIPine 5 MG TAB PO SCH (10:07)
[2019-12-30 12:00] VITALS: BP 127/68
[2019-12-30] MEDS ORDERED: PANT40TA29 PO (12:18)
[2019-12-30] MEDS ORDERED: PROP10TA56 PO (12:18)
--- NOTE | 2019-12-30 12:20 | DS.PDOC ---
Discharge Summary General Date of Admission Dec 23, 2019 at 22:30 Date of Discharge 12/30/19 Attending Physician: KAYLA WALL MD Discharge Summary PROCEDURES PERFORMED DURING STAY: None. ADMITTING DIAGNOSES: 1. Upper GI bleed, esophageal varices, alcohol withdrawal, liver cirrhosis. DISCHARGE DIAGNOSES: 1. Upper GI bleed, esophageal varices, alcohol withdrawal, liver cirrhosis. COMPLICATIONS/CHIEF COMPLAINT: Upper Gi Bleed. HISTORY OF PRESENT ILLNESS: 54-year-old male with past medical history of alcohol abuse, was admitted for a GI bleed, emergent EGD showed bleeding varices, requiring banding. Patient was initially admitted to ICU for close monitoring, remained stable with no further signs of bleeding, H&H has remained stable throughout hospitalization. Patient was also treated for alcohol withdrawal with benzodiazepines and Precedex, currently without any symptoms of withdrawal. Patient was about a by physical therapy, now cleared for discharge home. GI recommendations appreciated, patient started on propranolol and PPI. He has completed 7 days of ceftriaxone already. HOSPITAL COURSE: As above. DISCHARGE MEDICATIONS: Please see below. ALLERGIES: Please see below. PHYSICAL EXAMINATION: VITAL SIGNS: Please see below. GENERAL: No distress HEENT: Normocephalic, atraumatic, moist mucous membranes NECK: Supple CARDIOVASCULAR EXAMINATION: S1, S2, no murmurs RESPIRATORY EXAMINATION: Scattered rhonchi, no wheezing ABDOMINAL EXAMINATION: Soft, nontender, nondistended, positive bowel sounds EXTREMITIES: Range of motion intact SKIN: No rash NEUROLOGICAL EXAMINATION: Alert and oriented 3, no focal deficits PSYCHIATRIC EXAMINATION: Calm and cooperative LABORATORY DATA: Please see below. PROGNOSIS: Guarded ACTIVITY: As tolerated. DIET: Cardiac DISCHARGE PLAN: Follow with PCP and GI in 1-2 weeks DISPOSITION: Home with services. DISCHARGE INSTRUCTIONS: 1. As above. DISCHARGE CONDITION: Stable. TIME SPENT ON DISCHARGE: Greater than 32 minutes. Vital Signs/I&Os Vital Signs Date Time Temp Pulse Resp B/P (MAP) Pulse Ox O2 Delivery O2 Flow Rate FiO2 12/30/19 10:06 67 128/77 12/30/19 08:00 98.1 18 99 Room Air 12/24/19 05:43 2.0 12/24/19 04:00 98 I&O- Last 24 Hours up to 6 AM 12/30/19 06:00 Intake Total 1080 ml Balance 1080 ml Microbiology Microbiology 12/24/19 Gram Stain - Final, Resulted 12/24/19 Wound Culture, Resulted Pending 12/23/19 Blood Culture - Final, Complete NO GROWTH AFTER 5 DAYS 12/23/19 Blood Culture - Final, Complete NO GROWTH AFTER 5 DAYS 12/23/19 Respiratory Virus Panel (PCR) (ZEV) - Final, Complete 12/23/19 Blood Culture - Final, Complete Gemella Morbillorum Discharge Medications Scheduled Cephalexin (Cephalexin) 500 Mg Capsule, 500 MG PO BID, (Reported) 10 DAY COURSE STARTED ON 12/16/19 Scheduled PRN Ibuprofen (Ibuprofen) 800 Mg Tablet, 800 MG PO TID PRN for PAIN, (Reported) Allergies Coded Allergies: No Known Allergies (Unverified , 04/15/15) KAYLA WALL MD Dec 30, 2019 12:20
== END 2019-12-30 14:22 | disposition home or self-care (01) | DRG 242 ==
LOC: M ED 15:10 → M SDC 18:20 → M ICU 22:15 → M SDC 22:29 → M ICU 22:30 → M PCU 12-27 11:13
PROVIDERS: ADMIT Internal Medicine; ATTEND Internal Medicine
PROC: 0W3P8ZZ Control Bleeding in Gastrointestinal Tract, Via Natural or Artificial Opening Endoscopic (ICD-10-PCS; principal; 2019-12-23 19:30)
DX: I85.01 Esophageal varices with bleeding (principal); K76.6 Portal hypertension; D69.59 Other secondary thrombocytopenia; K70.30 Alcoholic cirrhosis of liver without ascites; F10.239 Alcohol dependence with withdrawal, unspecified; I10 Essential (primary) hypertension; E78.5 Hyperlipidemia, unspecified; K21.9 Gastro-esophageal reflux disease without esophagitis; R74.8 Abnormal levels of other serum enzymes; D62 Acute posthemorrhagic anemia; Z11.59 Encounter for screening for other viral diseases

== ENCOUNTER → 2020-01-10 | Outpatient (CLI) | payer OTHER ==
[~2020-01-10] MED LIST changes: +CEPH500C PO; +IBUP80TA PO; +LISI-538 PO; -LISI10TA22 PO; +LISI10TA4 PO; +LISI20TA19 PO; -LISI20TA33 PO; -LISI20TA35 PO; +PANT40TA3 PO; +PROP10TA56 PO
--- NOTE | 2020-01-10 11:54 | REP ---
Clinical: Edema . Comparison: 11/07/2017 . Technique: PA and lateral. Findings: The mediastinum and cardiac silhouette are normal. The lung wilder are clear and without acute consolidation, effusion, or pneumothorax. The skeletal structures are intact and normal. Impression: 1. No acute cardiopulmonary process. Electronically Signed by Drew Armstrong MD 01/10/2020 11:46 A
[2020-01-10 12:11] LABS: BASO # 0.1 10^3/uL (0.0-0.2); BASO % 1.3 % (0.0-1.0); EOS # 0.2 10^3/uL (0.0-0.5); EOS % 4.4 % (0.0-3.0); HEMATOCRIT 31.3 % (42.0-52.0); HEMOGLOBIN 10.4 g/dl (13.5-17.5); LYMPH # 2.7 10^3/uL (1.5-5.0); LYMPH % 49.4 % (24.0-44.0); MEAN CORPUSCULAR HEMOGLOBIN 32.9 pg (27.0-33.0); MEAN CORPUSCULAR HGB CONC 33.2 g/dl (32.0-36.5); MEAN CORPUSCULAR VOLUME 99.1 fl (80.0-96.0); MONO # 0.4 10^3/uL (0.0-0.8); MONO % 6.6 % (0.0-5.0); NEUTROPHILS # 2.1 10^3/uL (1.5-8.5); NEUTROPHILS % 38.1 % (36.0-66.0); RED BLOOD COUNT 3.16 10^6/uL (4.30-6.10); WHITE BLOOD COUNT 5.5 10^3/uL (4.0-10.0)
[2020-01-10 12:17] LABS: PLATELET COUNT, AUTOMATED 76 10^3/uL (150-450)
[2020-01-10 12:32] LABS: ALBUMIN 3.1 GM/DL (3.2-5.2); ALT/SGPT 41 U/L (12-78); BILIRUBIN,TOTAL 1.6 MG/DL (0.2-1.0); BLOOD UREA NITROGEN 8 MG/DL (7-18); CALCIUM LEVEL 8.2 MG/DL (8.5-10.1); CARBON DIOXIDE LEVEL 27 MEQ/L (21-32); CHLORIDE LEVEL 110 MEQ/L (98-107); CREATININE FOR GFR 0.72 MG/DL (0.70-1.30); GLOMERULAR FILTRATION RATE > 60.0 (>56); GLUCOSE, FASTING 99 MG/DL (70-100); POTASSIUM SERUM 3.9 MEQ/L (3.5-5.1); SODIUM LEVEL 145 MEQ/L (136-145); TOTAL PROTEIN 7.5 GM/DL (6.4-8.2)
== END ==
LOC: M WUC 11:14
PROVIDERS: ATTEND Physician Assistant
DX: R60.0 Localized edema (principal)

== ENCOUNTER 2020-03-04 12:49 | Emergency (ER) | payer MEDICAID, OTHER ==
[~2020-03-04] VITALS: Ht 172.7 cm; Wt 85.8 kg
[~2020-03-04 12:49] MED LIST changes: -LISI20TA19 PO; +LISI20TA35 PO; +PANT40TA29 PO; -PANT40TA3 PO
[2020-03-04] MEDS ORDERED: SUCCINYLCHOLINE 100 MG/5 ML SYRINGE (J0330) ONE (12:50)
[2020-03-04] MEDS ORDERED: ETOMIDATE INJ 20MG/10ML VIAL ONE (12:50)
[2020-03-04] MEDS ORDERED: LORazepam 2 MG/ML VIAL As Ordered ONE (13:01)
[2020-03-04] MEDS ORDERED: LORazepam 2 MG/ML VIAL IV STA ×3 (13:13→14:10)
[2020-03-04] MEDS ORDERED: PROPOFOL 1,000 MG/100 ML VIAL As Ordered ONE (13:14)
[2020-03-04] MEDS ORDERED: SUCCINYLCHOLINE INJ 200 MG/10 ML VIAL (J0330) IV ONE (13:15)
[2020-03-04] MEDS ORDERED: ETOMIDATE INJ 20MG/10ML VIAL IV ONE (13:15)
[2020-03-04 13:25] LABS: ABG PARTIAL PRESSURE CO2 44.2 mmHg (35.0-45.0); ABG pH (ARTERIAL) 6.858 UNITS (7.350-7.450)
[2020-03-04 13:26] LABS: ABG BASE EXCESS -25.7 (-2.0-2.0); ABG HCO3 7.7 MEQ/L (22.0-26.0); ABG O2 SATURATION 93.6 % (95.0-99.0); ABG PARTIAL PRESSURE O2 111.4 mmHg (75.0-100.0); ABG STANDARD HCO3 6.8 MEQ/L (22.0-26.0)
[2020-03-04] MEDS ORDERED: NS 1,000 ML IV ONE ×2 (13:30→14:00)
[2020-03-04] MEDS ORDERED: levETIRAcetam INJection 1,000 MG in D5W 100 ML IV ONE (13:30)
[2020-03-04 13:32] LABS: BASO # 0.1 10^3/uL (0.0-0.2); BASO % 0.6 % (0.0-1.0); EOS % 0.1 % (0.0-3.0); HEMATOCRIT 41.4 % (42.0-52.0); HEMOGLOBIN 12.3 g/dl (13.5-17.5); LYMPH # 2.1 10^3/uL (1.5-5.0); LYMPH % 11.9 % (24.0-44.0); MEAN CORPUSCULAR HGB CONC 29.7 g/dl (32.0-36.5); MONO # 1.2 10^3/uL (0.0-0.8); MONO % 7.2 % (0.0-5.0); NEUTROPHILS # 13.5 10^3/uL (1.5-8.5); NEUTROPHILS % 78.3 % (36.0-66.0); PLATELET COUNT, AUTOMATED 277 10^3/uL (150-450); WHITE BLOOD COUNT 17.3 10^3/uL (4.0-10.0)
--- NOTE | 2020-03-04 13:42 | REPVR ---
PROCEDURE INFORMATION: Exam: CT Head Without Contrast Exam date and time: 03/04/2020 1:35 PM Age: 54 years old Clinical indication: Condition or disease; Other: Overdose; Additional info: Drug overdose TECHNIQUE: Imaging protocol: Computed tomography of the head without contrast. Radiation optimization: All CT scans at this facility use at least one of these dose optimization techniques: automated exposure control; mA and/or kV adjustment per patient size (includes targeted exams where dose is matched to clinical indication); or iterative reconstruction. COMPARISON: CT Head without contrast 04/24/2019 10:19 PM FINDINGS: Brain: There is a 10 mm right posterior temporal parenchymal hemorrhage with associated edema local mass effect. There are hypodense right posterior and left frontal convexity subdural collections. Ventricles: Normal. No ventriculomegaly. Bones/joints: Unremarkable. No acute fracture. Sinuses: Visualized sinuses are unremarkable. No fluid levels. Mastoid air cells: Visualized mastoid air cells are well aerated. Soft tissues: Unremarkable. IMPRESSION: 1. 10 mm right posterior temporal parenchymal hemorrhage with associated edema and local mass effect. 2. Focal right posterior and left frontal convexity hypodense collections potentially chronic subdural hematomas. These findings were discussed with NAPOLEON COBURN at 1:41 PM EDT. Electronically signed by: Alisa Courtney On 03/04/2020 13:41:57 PM
[2020-03-04] MEDS: propofoL 1,000 MG in IV 1 EA IV SCH ×2 (14:00→15:29)
[2020-03-04] MEDS ORDERED: THIAMINE 200MG/2ML VIAL (J3411 PER 100MG) IM ONE (14:00)
[2020-03-04 14:12] LABS: OSMOLALITY SERUM 305 MOSM/KG (275-295)
[2020-03-04] MEDS ORDERED: MIDAZOLAM 5MG/ML 1ML VIAL (J2250 PER 1MG) As Ordered ONE (14:19)
[2020-03-04 14:29] LABS: ACETAMINOPHEN LEVEL < 2.0 UG/ML (10.0-30.0); ALBUMIN 3.5 GM/DL (3.2-5.2); ALT/SGPT 65 U/L (12-78); BILIRUBIN,TOTAL 1.3 MG/DL (0.2-1.0); BLOOD UREA NITROGEN 16 MG/DL (7-18); CARBON DIOXIDE LEVEL 9 MEQ/L (21-32); CHLORIDE LEVEL 106 MEQ/L (98-107); CPK CREATINE PHOSPHOKINASE 159 U/L (39-308); CREATININE FOR GFR 1.25 MG/DL (0.70-1.30); ETHYL ALCOHOL (ETHANOL) < 0.003 % (0.000-0.010); GLOMERULAR FILTRATION RATE > 60.0 (>56); GLUCOSE, FASTING 120 MG/DL (70-100); POTASSIUM SERUM 4.7 MEQ/L (3.5-5.1); SALICYLATE LEVEL < 1.7 MG/DL (5.0-30.0); SODIUM LEVEL 140 MEQ/L (136-145); TOTAL PROTEIN 9.2 GM/DL (6.4-8.2)
[2020-03-04] MEDS ORDERED: niCARdipine IV 40 MG in IV 1 EA IV SCH (14:30)
[2020-03-04] MEDS ORDERED: MIDAZOLAM HCL 50 MG in D5W 40 ML IV SCH (14:30)
[2020-03-04 15:11] LABS: ABG BASE EXCESS -11.5 (-2.0-2.0); ABG HCO3 13.3 MEQ/L (22.0-26.0); ABG O2 SATURATION 96.1 % (95.0-99.0); ABG PARTIAL PRESSURE CO2 26.7 mmHg (35.0-45.0); ABG PARTIAL PRESSURE O2 86.5 mmHg (75.0-100.0); ABG STANDARD HCO3 15.4 MEQ/L (22.0-26.0); ABG TOTAL CO2 14.1 MEQ/L (22.0-29.0); ABG pH (ARTERIAL) 7.314 UNITS (7.350-7.450)
--- NOTE | 2020-03-04 15:35 | REPVR ---
PROCEDURE INFORMATION: Exam: CT Cervical Spine Without Contrast Exam date and time: 03/04/2020 2:42 PM Age: 54 years old Clinical indication: Other: Seizure TECHNIQUE: Imaging protocol: Computed tomography images of the cervical spine without contrast. Radiation optimization: All CT scans at this facility use at least one of these dose optimization techniques: automated exposure control; mA and/or kV adjustment per patient size (includes targeted exams where dose is matched to clinical indication); or iterative reconstruction. COMPARISON: CT Spine,cervical w/o contrast 04/24/2019 10:19 PM FINDINGS: Tubes, catheters and devices: Endotracheal tube tip is located just above the thoracic inlet. On the chief chemist view, the endotracheal tube projects approximately 2 cm above the aneudy. Vertebrae: Images are quite motion degraded, in particular from the C2 through C4 levels, also C5-C6 level. In spite repeat imaging of the lower cervical spine, persistent motion artifact at the C5-C6 level. No obvious, acute fracture identified. There is disc height loss and spondylosis with uncovertebral arthropathy C5-C6. Considerably limited assessment of the central spinal canal due to motion artifacts. There are degenerative neural foraminal stenoses at C5-C6. Moderate degenerative changes at C1-C2. Discs/Spinal canal/Neural foramina: See "Vertebrae" finding. Soft tissues: Unremarkable. Lungs: An area of parenchymal scarring in the left lung apex. There is an azygos lobe. IMPRESSION: 1. Endotracheal tube tip projects approximately 2 cm above the aneudy. Recommended advancing the tube. 2. In spite of repeat imaging there are motion artifacts. 3. No obvious cervical spine fracture. If the patient complains of neck pain and there is continued clinical concern for fracture, a repeat study is recommended. Electronically signed by: Silvina Segovia On 03/04/2020 15:35:27 PM
[2020-03-04 16:06] VITALS: BP 120/55
[2020-03-04 16:56] LABS: INR 1.5; PROTHROMBIN TIME 18.4 SECONDS (11.8-14.0)
--- NOTE | 2020-03-17 14:39 | ECGEPIP ---
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
--- NOTE | 2020-03-22 17:06 | REP ---
PORTABLE CHEST X-RAY: HISTORY: Drug overdose. COMPARISON: 01/10/20 FINDINGS: Mediastinum and cardiac silhouette are within normal limits for portable technique. Lung wilder are clear. No focal consolidation, effusion or pneumothorax. Skeletal structures are intact. IMPRESSION: Normal portable chest x-ray. No acute consolidation or effusion. MTDD
== END 2020-03-04 16:16 | disposition short-term general hospital (02) ==
LOC: M ED 12:49 → EDBD 12:49 → M ED 16:16
DX: F10.239 Alcohol dependence with withdrawal, unspecified (principal); I61.8 Other nontraumatic intracerebral hemorrhage; I10 Essential (primary) hypertension; G40.909 Epilepsy, unspecified, not intractable, without status epilepticus; E78.9 Disorder of lipoprotein metabolism, unspecified; Z79.899 Other long term (current) drug therapy
CPT/HCPCS: 31500; 70450; 71045; 72125; 80048; 80076; 82550; 82803; 83930; 84443; 85025; 85610; 93005; 93041; 96365; 96366; 96367; 96372; 96375; 96376; 99291; 99292; G0480; J0330; J1953; J2060; J2250; J3411; U0002

== ENCOUNTER → 2020-03-24 | Outpatient (CLI) | payer OTHER ==
[2020-03-24 11:31] LABS: BASO % 0.8 % (0.0-1.0); EOS # 0.2 10^3/uL (0.0-0.5); EOS % 4.6 % (0.0-3.0); HEMATOCRIT 33.7 % (42.0-52.0); HEMOGLOBIN 10.7 g/dl (13.5-17.5); LYMPH # 2.2 10^3/uL (1.5-5.0); MEAN CORPUSCULAR HEMOGLOBIN 28.4 pg (27.0-33.0); MEAN CORPUSCULAR HGB CONC 31.8 g/dl (32.0-36.5); MEAN CORPUSCULAR VOLUME 89.4 fl (80.0-96.0); MONO # 0.5 10^3/uL (0.0-0.8); MONO % 9.5 % (0.0-5.0); NEUTROPHILS % 40.9 % (36.0-66.0); PLATELET COUNT, AUTOMATED 135 10^3/uL (150-450); RED BLOOD COUNT 3.77 10^6/uL (4.30-6.10)
[2020-03-24 11:43] LABS: INR 1.26; PROTHROMBIN TIME 16.1 SECONDS (11.8-14.0)
[2020-03-24 11:44] LABS: PARTIAL THROMBOPLASTIN TIME 32.6 SECONDS (25.0-38.4)
[2020-03-24 12:05] LABS: ALBUMIN 3.2 GM/DL (3.2-5.2); ALT/SGPT 38 U/L (12-78); BILIRUBIN,TOTAL 1.7 MG/DL (0.2-1.0); BLOOD UREA NITROGEN 11 MG/DL (7-18); CALCIUM LEVEL 8.7 MG/DL (8.5-10.1); CARBON DIOXIDE LEVEL 27 MEQ/L (21-32); CHLORIDE LEVEL 104 MEQ/L (98-107); CHOLESTEROL LEVEL 135 MG/DL (<200); CHOLESTEROL RISK RATIO 1.875 (<5); CREATININE FOR GFR 0.75 MG/DL (0.70-1.30); GLOMERULAR FILTRATION RATE > 60.0 (>56); GLUCOSE, FASTING 110 MG/DL (70-100); HDL CHOLESTEROL 72 MG/DL (>40); LDL CHOLESTEROL 53 MG/DL (<100); MAGNESIUM LEVEL 1.6 MG/DL (1.8-2.4); NON-HDL-C 63 MG/DL; POTASSIUM SERUM 4.5 MEQ/L (3.5-5.1); SODIUM LEVEL 135 MEQ/L (136-145); TOTAL PROTEIN 7.9 GM/DL (6.4-8.2); TRIGLYCERIDES LEVEL 49 MG/DL (<150)
[2020-03-24 17:14] LABS: VITAMIN B12 LEVEL 951 PG/ML (247-911)
--- NOTE | 2020-04-05 15:00 | REPPI ---
LEFT SHOULDER SERIES: 3-VIEWS HISTORY: Left shoulder pain and decreased range of motion. FINDINGS: The left glenohumeral joint is normally aligned. There is mild superior alignment of the distal clavicle relative to the acromion process on oblique and internal rotation radiographs, implying possible prior acromioclavicular (AC) separation injury. There is minimal spurring at the acromioclavicular (AC) joint. Glenohumeral osteoarthritic spurring is noted. There is mild diffuse osteopenia. Periarticular soft tissues are unremarkable. No erosive change is seen. IMPRESSION: Question old acromioclavicular (AC) separation injury. Glenohumeral osteoarthritic spurring. No acute bony abnormality. MTDD
== END ==
LOC: M PLAIMG 08:05 → M PLALAB 08:05
PROVIDERS: ATTEND Family Medicine
DX: F10.239 Alcohol dependence with withdrawal, unspecified (principal); I85.01 Esophageal varices with bleeding; G62.9 Polyneuropathy, unspecified; M25.512 Pain in left shoulder; M19.012 Primary osteoarthritis, left shoulder

== ENCOUNTER → 2020-04-11 | Outpatient (CLI) | payer OTHER ==
--- NOTE | 2020-04-18 14:19 | REP ---
ULTRASOUND POSTERIOR CHEST WALL SOFT TISSUES HISTORY: Palpable lump. FINDINGS: Real-time sonographic evaluation of posterior chest wall performed at the site of a palpable lump at about the T12 level. There is an oval soft tissue mass which appears solid. It measures 1.5 x 1.1 x 0.4 cm. IMPRESSION: At the site of the palpable lump in the left posterior chest wall, there is an oval solid soft tissue mass which is nonspecific. Recommend either ultrasound guided biopsy or further evaluation with MRI. MTDD
== END ==
LOC: M RAD 10:47
PROVIDERS: ATTEND Internal Medicine Nephrology
DX: R22.2 Localized swelling, mass and lump, trunk (principal); M54.5 Low back pain

== ENCOUNTER → 2020-05-18 | Outpatient (REF) | payer MEDICAID, OTHER ==
[2020-05-18 11:09] LABS: HEMATOCRIT 30.9 % (42.0-52.0); HEMOGLOBIN 9.4 g/dl (13.5-17.5); MEAN CORPUSCULAR HEMOGLOBIN 26.9 pg (27.0-33.0); MEAN CORPUSCULAR HGB CONC 30.4 g/dl (32.0-36.5); MEAN CORPUSCULAR VOLUME 88.5 fl (80.0-96.0); RED BLOOD COUNT 3.49 10^6/uL (4.30-6.10); WHITE BLOOD COUNT 3.7 10^3/uL (4.0-10.0)
[2020-05-18 11:16] LABS: INR 1.33; PROTHROMBIN TIME 16.8 SECONDS (12.5-14.3)
[2020-05-18 11:17] LABS: PARTIAL THROMBOPLASTIN TIME 29.5 SECONDS (24.2-38.5)
[2020-05-18 11:23] LABS: ALT/SGPT 44 U/L (12-78); BILIRUBIN,TOTAL 1.6 MG/DL (0.2-1.0); BLOOD UREA NITROGEN 9 MG/DL (7-18); CALCIUM LEVEL 8.9 MG/DL (8.5-10.1); CARBON DIOXIDE LEVEL 25 MEQ/L (21-32); CHLORIDE LEVEL 107 MEQ/L (98-107); CREATININE FOR GFR 0.76 MG/DL (0.70-1.30); FERRITIN 19 NG/ML (26-388); GLOMERULAR FILTRATION RATE > 60.0 (>56); GLUCOSE, FASTING 85 MG/DL (70-100); IRON (FE) 28 UG/DL (65-175); MAGNESIUM LEVEL 1.9 MG/DL (1.8-2.4); POTASSIUM SERUM 4.1 MEQ/L (3.5-5.1); SODIUM LEVEL 139 MEQ/L (136-145); TOTAL PROTEIN 8.5 GM/DL (6.4-8.2)
[2020-05-18 12:08] LABS: PLATELET COUNT, AUTOMATED 42 10^3/uL (150-450)
[2020-05-19 15:08] LABS: ANTINUCLEAR ANTIBODIES DIRECT Negative (Negative); CERULOPLASMIN 30.8 mg/dL (16.0-31.0)
== END ==
LOC: M SFHCPLAZ 08:45
PROVIDERS: ATTEND Family Medicine
DX: K74.60 Unspecified cirrhosis of liver (principal)

== ENCOUNTER 2021-01-10 17:50 | Emergency (ER) | payer OTHER ==
[~2021-01-10] VITALS: Ht 177.8 cm; Wt 108.0 kg
[~2021-01-10 17:50] MED LIST changes: -LISI-538 PO; +LISI10TA22 PO; -LISI10TA4 PO; +LISI20TA33 PO
[2021-01-10] MEDS ORDERED: BOOSTRIX/ADACEL VACCINE (DIPHTH/PERTUSS/ACELL/TETANUS) 0.5ML SYR IM ONE (18:00)
[2021-01-10] MEDS ORDERED: DERMABOND TOPICAL SKIN ADHESIVE TOP ONE (18:00)
--- NOTE | 2021-01-10 19:27 | REP ---
INDICATION: trauma COMPARISON: 03/04/2020 TECHNIQUE: PA and lateral. FINDINGS: The mediastinum and cardiac silhouette are normal. The lung wilder are clear and without acute consolidation, effusion, or pneumothorax. The skeletal structures are intact and normal. IMPRESSION: No acute cardiopulmonary process. <Electronically signed by Drew Armstrong > 01/10/21 [id number]
--- NOTE | 2021-01-10 19:27 | REPVR ---
PROCEDURE INFORMATION: Exam: CT Head Without Contrast Exam date and time: 01/10/2021 6:30 PM Age: 55 years old Clinical indication: Injury or trauma; Fall; Blunt trauma (contusions or hematomas); Additional info: [place] TECHNIQUE: Imaging protocol: Computed tomography of the head without contrast. Radiation optimization: All CT scans at this facility use at least one of these dose optimization techniques: automated exposure control; mA and/or kV adjustment per patient size (includes targeted exams where dose is matched to clinical indication); or iterative reconstruction. COMPARISON: CT Head without contrast 03/04/2020 1:22 PM FINDINGS: Brain: There is moderate diffuse cerebellar atrophy. There is moderate parenchymal volume loss. White matter changes are demonstrated in the subcortical, centrum semiovale and periventricular white matter consistent with chronic small vessel ischemic changes. Cerebral ventricles: The degree of ventricular dilatation is normal for age and/or degree of atrophy present. Paranasal sinuses: Visualized sinuses are unremarkable. No fluid levels. Mastoid air cells: Visualized mastoid air cells are well aerated. Bones/joints: Unremarkable. No acute fracture. Soft tissues: Right frontal soft tissue hematoma/laceration. IMPRESSION: 1. There is moderate diffuse cerebellar atrophy. 2. Right frontal soft tissue hematoma/laceration. No skull fracture. 3. There is moderate parenchymal volume loss. White matter changes are demonstrated in the subcortical, centrum semiovale and periventricular white matter consistent with chronic small vessel ischemic changes. 4. The degree of ventricular dilatation is normal for age and/or degree of atrophy present. 5. No acute intracranial findings. Electronically signed by: Orville Rolle On 01/10/2021 19:26:46 PM
--- NOTE | 2021-01-10 19:33 | REPVR ---
PROCEDURE INFORMATION: Exam: CT Cervical Spine Without Contrast Exam date and time: 01/10/2021 6:30 PM Age: 55 years old Clinical indication: Injury or trauma; Fall; Blunt trauma; Additional info: [place] TECHNIQUE: Imaging protocol: Computed tomography images of the cervical spine without contrast. Radiation optimization: All CT scans at this facility use at least one of these dose optimization techniques: automated exposure control; mA and/or kV adjustment per patient size (includes targeted exams where dose is matched to clinical indication); or iterative reconstruction. COMPARISON: CT Spine,cervical w/o contrast 03/04/2020 1:59 PM FINDINGS: Bones/joints: See "Discs/Spinal canal/Neural foramina" finding. Discs/Spinal canal/Neural foramina: Disc space narrowing at C6-C7 with small intervertebral osteophytes. Mild retrolisthesis of C6 on C7, stable in comparison to the prior exam of 03/04/2020. Mild foraminal narrowing on the right at C2, moderate bilateral foraminal narrowing at C5, severe bilateral foraminal narrowing at C6, changes secondary to osteophytic encroachment. Disc osteophyte complexes demonstrated at multiple levels with a small posterior disc protrusion at C2-C3 without cord impingement, diffusely bulging annulus at C3-C4 without cord impingement, broad posterior disc protrusion at C5-C6 with mild cord impingement and a disc osteophyte complex at C6-C7 with mild to moderate cord impingement. Sinuses: Mild inflammatory changes at the base of the maxillary sinuses. Lungs: Apical pleuroparenchymal scarring on the left. Vasculature: Bilateral atherosclerotic changes in the carotid arteries. Soft tissues: Unremarkable. IMPRESSION: 1. Degenerative spondylosis as described above. 2. No acute findings. Electronically signed by: Orville Rolle On 01/10/2021 19:32:32 PM
--- NOTE | 2021-01-10 19:36 | REPVR ---
PROCEDURE INFORMATION: Exam: CT Maxillofacial Without Contrast Exam date and time: 01/10/2021 6:30 PM Age: 55 years old Clinical indication: Injury or trauma; Fall; Blunt trauma (contusions or hematomas); Cheek bone; Not specified; Additional info: [place] TECHNIQUE: Imaging protocol: Computed tomography images of the face without contrast. Radiation optimization: All CT scans at this facility use at least one of these dose optimization techniques: automated exposure control; mA and/or kV adjustment per patient size (includes targeted exams where dose is matched to clinical indication); or iterative reconstruction. COMPARISON: CT Maxilofacial w/out contrast 04/24/2019 10:19 PM FINDINGS: Orbital cavity: Orbits are normal. Globes are unremarkable. Bones/joints: Chronic depressed nasal fracture again redemonstrated. Paranasal sinuses: Normal. No air-fluid levels. Soft tissues: Right frontal soft tissue hematoma/laceration. Inflammatory changes in the right buccal region consistent with reported history of trauma. IMPRESSION: 1. Right frontal soft tissue hematoma/laceration. No skull fracture. 2. Inflammatory changes in the right buccal region consistent with reported history of trauma. No fracture. Electronically signed by: Orville Rolle On 01/10/2021 19:36:11 PM
[2021-01-10 20:02] VITALS: BP 139/79
== END 2021-01-10 20:03 | disposition home or self-care (01) ==
LOC: M ED 17:50 → EDBD 17:50 → M ED 20:03
DX: S20.219A Contusion of unspecified front wall of thorax, initial encounter (principal); W01.198A Fall on same level from slipping, tripping and stumbling with subsequent striking against other object, initial encounter; Y92.410 Unspecified street and highway as the place of occurrence of the external cause; Y93.89 Activity, other specified; Y99.8 Other external cause status; I10 Essential (primary) hypertension; K21.9 Gastro-esophageal reflux disease without esophagitis; E78.9 Disorder of lipoprotein metabolism, unspecified; Z79.899 Other long term (current) drug therapy; Z82.49 Family history of ischemic heart disease and other diseases of the circulatory system

== ENCOUNTER 2021-07-19 10:34 | Emergency (ER) | payer OTHER ==
[~2021-07-19] VITALS: Ht 170.2 cm; Wt 87.0 kg
[2021-07-19 12:37] VITALS: BP 133/77
[2021-07-19] MEDS ORDERED: BOOSTRIX/ADACEL VACCINE (DIPHTH/PERTUSS/ACELL/TETANUS) 0.5ML SYR IM ONE (12:50)
[2021-07-19 15:57] VITALS: O2SAT 96
== END 2021-07-19 16:02 | disposition home or self-care (01) ==
LOC: M ED 10:34
DX: S00.81XA Abrasion of other part of head, initial encounter (principal); W01.0XXA Fall on same level from slipping, tripping and stumbling without subsequent striking against object, initial encounter; Y92.410 Unspecified street and highway as the place of occurrence of the external cause; I10 Essential (primary) hypertension; F10.10 Alcohol abuse, uncomplicated

== ENCOUNTER 2021-09-09 15:45 | Emergency (ER) | payer OTHER ==
[~2021-09-09] VITALS: Ht 182.9 cm; Wt 89.6 kg
[2021-09-09] MEDS ORDERED: SUCCINYLCHOLINE 100 MG/5 ML SYRINGE (J0330) ONE (15:46)
[2021-09-09] MEDS ORDERED: ONDANSETRON 4MG/2ML VIAL IV ONE (15:50)
[2021-09-09] MEDS ORDERED: PANTOPRAZOLE 40MG VIAL (C9113 PER 1) IV ONE (15:50)
[2021-09-09] MEDS ORDERED: THIAMINE 200MG 2ML VIAL IM ONE (15:50)
[2021-09-09] MEDS ORDERED: levETIRAcetam INJection 1,000 MG in D5W 100 ML IV ONE (16:00)
[2021-09-09] MEDS ORDERED: LORazepam 2 MG/ML VIAL IV STA (16:09)
[2021-09-09] MEDS ORDERED: propofoL 1,000 MG in IV 1 EA IV SCH (16:15)
[2021-09-09 16:43] LABS: BASO % 0.3 % (0.0-1.0); EOS # 0.2 10^3/uL (0.0-0.5); EOS % 2.5 % (0.0-3.0); HEMATOCRIT 37.5 % (42.0-52.0); HEMOGLOBIN 12.3 g/dl (13.5-17.5); LYMPH # 0.6 10^3/uL (1.5-5.0); LYMPH % 8.6 % (24.0-44.0); MEAN CORPUSCULAR HEMOGLOBIN 33.3 pg (27.0-33.0); MEAN CORPUSCULAR HGB CONC 32.8 g/dl (32.0-36.5); MEAN CORPUSCULAR VOLUME 101.6 fl (80.0-96.0); MONO # 0.5 10^3/uL (0.0-0.8); MONO % 7.7 % (2.0-8.0); NEUTROPHILS # 5.3 10^3/uL (1.5-8.5); NEUTROPHILS % 80.3 % (36.0-66.0); RED BLOOD COUNT 3.69 10^6/uL (4.30-6.10); WHITE BLOOD COUNT 6.5 10^3/uL (4.0-10.0)
[2021-09-09 16:44] LABS: INR 1.5; PROTHROMBIN TIME 18.5 SECONDS (12.7-14.5)
[2021-09-09 16:45] LABS: PARTIAL THROMBOPLASTIN TIME 35.7 SECONDS (25.9-37.0)
[2021-09-09] MEDS ORDERED: MORPHINE 4 MG/ML 1ML VIAL/SYRINGE (J2270) IV PRN (16:50)
[2021-09-09 16:55] LABS: OSMOLALITY SERUM 336 MOSM/KG (275-295)
[2021-09-09 17:04] LABS: ALBUMIN 3.1 GM/DL (3.2-5.2); ALT/SGPT 34 U/L (12-78); BILIRUBIN,DIRECT 2.8 MG/DL (0.0-0.2); BILIRUBIN,TOTAL 5.1 MG/DL (0.2-1.0); ETHYL ALCOHOL (ETHANOL) 0.141 % (0.000-0.010); THYROID STIMULATING HORMONE 0.901 uIU/ML (0.358-3.740); TOTAL PROTEIN 8.1 GM/DL (6.4-8.2)
[2021-09-09 17:06] LABS: ABG BASE EXCESS -2.1 (-2.0-2.0); ABG HCO3 22.5 MEQ/L (22.0-26.0); ABG O2 SATURATION 99.3 % (95.0-99.0); ABG PARTIAL PRESSURE O2 198.6 mmHg (75.0-100.0); ABG STANDARD HCO3 22.7 MEQ/L (22.0-26.0); ABG TOTAL CO2 23.7 MEQ/L (22.0-29.0)
[2021-09-09 17:27] LABS: PLATELET COUNT, AUTOMATED 37 10^3/uL (150-450)
[2021-09-09 17:29] LABS: BLOOD UREA NITROGEN 9 MG/DL (7-18); CALCIUM LEVEL 8.8 MG/DL (8.5-10.1); CARBON DIOXIDE LEVEL 24 MEQ/L (21-32); CHLORIDE LEVEL 100 MEQ/L (98-107); CREATININE FOR GFR 0.83 MG/DL (0.70-1.30); GLOMERULAR FILTRATION RATE > 60.0 (>56); GLUCOSE, FASTING 87 MG/DL (70-100); POTASSIUM SERUM 4.5 MEQ/L (3.5-5.1); SODIUM LEVEL 140 MEQ/L (136-145)
[2021-09-09 17:42] VITALS: BP 151/88
[2021-09-09 18:13] LABS: AMPHETAMINES LEVEL URINE NEGATIVE (NEGATIVE); BARBITURATES URINE NEGATIVE (NEGATIVE); BENZODIAZEPINES URINE NEGATIVE (NEGATIVE); CANNABINOIDS URINE NEGATIVE (NEGATIVE); COCAINE METABOLITE URINE NEGATIVE (NEGATIVE); METHADONE URINE NEGATIVE (NEGATIVE); OPIATES URINE NEGATIVE (NEGATIVE); PHENCYCLIDINE URINE NEGATIVE (NEGATIVE)
[2021-09-09 18:49] LABS: CK-MB VALUE MASS 20.1 NG/ML (<3.6); MB/CK RELATIVE INDEX 1.93 (< OR =4)
== END 2021-09-09 17:42 | disposition short-term general hospital (02) ==
LOC: M ED 15:45 → EDBD 15:45 → M ED 17:42
DX: S06.5X0A Traumatic subdural hemorrhage without loss of consciousness, initial encounter (principal); S00.81XA Abrasion of other part of head, initial encounter; X58.XXXA Exposure to other specified factors, initial encounter; Y92.89 Other specified places as the place of occurrence of the external cause; F10.139 Alcohol abuse with withdrawal, unspecified; Y90.0 Blood alcohol level of less than 20 mg/100 ml; I10 Essential (primary) hypertension
CPT/HCPCS: 31500; 36600; 51702; 70450; 71045; 71250; 72125; 74176; 80047; 80048; 80076; 80307; 82077; 82140; 82550; 82553; 82803; 83605; 83930; 84443; 85025; 85049; 85055; 85610; 85730; 86850; 86900; 86901; 87040; 93005; 93041; 96372; 96374; 96375; 99291; C9113; J0330; J1953; J2060; J2270; J3411

== ENCOUNTER 2022-10-23 19:37 | Emergency (ER) | payer OTHER ==
[~2022-10-23] VITALS: Ht 177.8 cm; Wt 200.0 kg
[2022-10-23 23:12] VITALS: BP 144/75
[2022-10-24 00:45] LABS: BASO % 0.5 % (0.0-1.0); EOS # 0.4 10^3/uL (0.0-0.5); EOS % 6.1 % (0.0-3.0); HEMATOCRIT 38.7 % (42.0-52.0); HEMOGLOBIN 12.4 g/dl (13.5-17.5); LYMPH # 3.6 10^3/uL (1.5-5.0); LYMPH % 58.6 % (24.0-44.0); MEAN CORPUSCULAR HEMOGLOBIN 27.9 pg (27.0-33.0); MONO # 0.3 10^3/uL (0.0-0.8); MONO % 5.2 % (2.0-8.0); NEUTROPHILS # 1.8 10^3/uL (1.5-8.5); NEUTROPHILS % 29.3 % (36.0-66.0); PLATELET COUNT, AUTOMATED 120 10^3/uL (150-450); RED BLOOD COUNT 4.45 10^6/uL (4.30-6.10); WHITE BLOOD COUNT 6.1 10^3/uL (4.0-10.0)
[2022-10-24 00:56] LABS: AMPHETAMINES LEVEL URINE NEGATIVE (NEGATIVE); BARBITURATES URINE NEGATIVE (NEGATIVE); BENZODIAZEPINES URINE NEGATIVE (NEGATIVE); CANNABINOIDS URINE NEGATIVE (NEGATIVE); COCAINE METABOLITE URINE NEGATIVE (NEGATIVE); METHADONE URINE NEGATIVE (NEGATIVE); OPIATES URINE NEGATIVE (NEGATIVE); PHENCYCLIDINE URINE NEGATIVE (NEGATIVE)
[2022-10-24 00:58] LABS: ETHYL ALCOHOL (ETHANOL) 0.282 % (0.000-0.010)
[2022-10-24 00:59] LABS: ACETAMINOPHEN LEVEL < 2.0 UG/ML (10.0-20.0); CPK CREATINE PHOSPHOKINASE 252 U/L (46-171); SALICYLATE LEVEL < 3.0 MG/DL (<30)
[2022-10-24 01:00] LABS: ALBUMIN 3.6 G/DL (3.2-5.2); ALKALINE PHOSPHATASE 144 U/L (46-116); ALT/SGPT 39 U/L (7.0-40); AST/SGOT 67 U/L (<34); BILIRUBIN,DIRECT 0.7 MG/DL (<0.4); BILIRUBIN,TOTAL 1.4 MG/DL (0.3-1.2); BLOOD UREA NITROGEN 7 MG/DL (9-23); CALCIUM LEVEL 8.7 MG/DL (8.5-10.1); CARBON DIOXIDE LEVEL 26 MMOL/L (20-31); CHLORIDE LEVEL 110 MMOL/L (98-107); CREATININE FOR GFR 0.72 MG/DL (0.70-1.30); GLOMERULAR FILTRATION RATE > 60.0 (>56); GLUCOSE, FASTING 96 MG/DL (60-100); POTASSIUM SERUM 4.1 MMOL/L (3.5-5.1); SODIUM LEVEL 144 MMOL/L (136-145); TOTAL PROTEIN 7.8 G/DL (5.7-8.2)
[2022-10-24 01:01] LABS: THYROID STIMULATING HORMONE 3.062 uIU/ML (0.55-4.78)
== END 2022-10-24 02:10 | disposition left against medical advice (07) ==
LOC: M ED 19:37
DX: F10.10 Alcohol abuse, uncomplicated (principal); Z53.21 Procedure and treatment not carried out due to patient leaving prior to being seen by health care provider

== ENCOUNTER 2022-11-12 18:29 | Emergency (ER) | payer MEDICAID, OTHER ==
[2022-11-12 21:00] VITALS: BP 163/80
== END 2022-11-13 00:03 | disposition left against medical advice (07) ==
LOC: M ED 18:29
DX: M79.606 Pain in leg, unspecified (principal); Z53.21 Procedure and treatment not carried out due to patient leaving prior to being seen by health care provider

== ENCOUNTER 2022-11-13 22:33 | Emergency (ER) | payer MEDICAID ==
[~2022-11-13] VITALS: Ht 175.3 cm; Wt 93.9 kg
[2022-11-14 06:02] VITALS: BP 156/77
[2022-11-14] MEDS ORDERED: ACETAMINOPHEN 500 MG TAB PO ONE (06:15)
== END 2022-11-14 06:27 | disposition home or self-care (01) ==
LOC: M ED 22:33 → EDBD 22:33 → M ED 11-14 06:27
DX: R68.89 Other general symptoms and signs (principal); M54.9 Dorsalgia, unspecified; I10 Essential (primary) hypertension; G40.909 Epilepsy, unspecified, not intractable, without status epilepticus; F41.9 Anxiety disorder, unspecified; F32.A Depression, unspecified

== ENCOUNTER → 2023-01-31 | Outpatient (CLI) | payer MEDICAID | LOC: M RAD 11:15 | PROVIDERS: ATTEND Physician Assistant | DX: M54.9 Dorsalgia, unspecified (principal); G89.29 Other chronic pain ==

== ENCOUNTER → 2023-05-07 | Outpatient (REF) | payer MEDICAID ==
[2023-05-07 17:28] LABS: BASO % 0.9 % (0.0-1.0); EOS # 0.1 10^3/uL (0.0-0.5); EOS % 3.7 % (0.0-3.0); HEMATOCRIT 40.6 % (42.0-52.0); HEMOGLOBIN 13.7 g/dl (13.5-17.5); LYMPH # 1.6 10^3/uL (1.5-5.0); LYMPH % 48.5 % (24.0-44.0); MEAN CORPUSCULAR HEMOGLOBIN 33.7 pg (27.0-33.0); MEAN CORPUSCULAR HGB CONC 33.7 g/dl (32.0-36.5); MONO # 0.2 10^3/uL (0.0-0.8); MONO % 7.3 % (2.0-8.0); NEUTROPHILS # 1.3 10^3/uL (1.5-8.5); NEUTROPHILS % 39.6 % (36.0-66.0); RED BLOOD COUNT 4.06 10^6/uL (4.30-6.10); WHITE BLOOD COUNT 3.3 10^3/uL (4.0-10.0)
[2023-05-07 18:03] LABS: TOTAL 25(OH) VITAMIN D 33.7 NG/ML (20.0-100.0)
[2023-05-07 18:04] LABS: VITAMIN B12 LEVEL 922 PG/ML (211-911)
[2023-05-07 18:05] LABS: IRON (FE) 115 UG/DL (65-175); PERCENT SATURATION 31.9 % (19.7-50.0); TOTAL IRON BINDING CAPACITY 361 UG/DL (250-425)
[2023-05-07 18:10] LABS: PLATELET COUNT, AUTOMATED 62 10^3/uL (150-450)
[2023-05-07 18:13] LABS: HEMOGLOBIN A1c 4.4 % (4.0-6.0)
[2023-05-07 18:20] LABS: ALBUMIN 3.6 G/DL (3.2-5.2); ALKALINE PHOSPHATASE 93 U/L (46-116); ALT/SGPT 50 U/L (7.0-40); AST/SGOT 120 U/L (<34); BILIRUBIN,TOTAL 2.4 MG/DL (0.3-1.2); BLOOD UREA NITROGEN 11 MG/DL (9-23); CALCIUM LEVEL 9.1 MG/DL (8.5-10.1); CARBON DIOXIDE LEVEL 26 MMOL/L (20-31); CHLORIDE LEVEL 106 MMOL/L (98-107); CHOLESTEROL LEVEL 178 MG/DL (<200); CHOLESTEROL RISK RATIO 2.11 (<5); CREATININE FOR GFR 0.58 MG/DL (0.70-1.30); FOLATE > 24.0 NG/ML (>5.4); GLOMERULAR FILTRATION RATE > 60.0 (>56); GLUCOSE, FASTING 93 MG/DL (60-100); LDL CHOLESTEROL 78.8 MG/DL (<100); MAGNESIUM LEVEL 1.7 MG/DL (1.8-2.4); POTASSIUM SERUM 4.1 MMOL/L (3.5-5.1); SODIUM LEVEL 143 MMOL/L (136-145); TOTAL PROTEIN 8.2 G/DL (5.7-8.2); TRIGLYCERIDES LEVEL 76 MG/DL (<150)
== END ==
LOC: M LAB REF 16:58
PROVIDERS: ATTEND Nurse Practitioner Family
DX: E55.9 Vitamin D deficiency, unspecified (principal); E66.3 Overweight; R53.83 Other fatigue; R20.2 Paresthesia of skin; Z11.9 Encounter for screening for infectious and parasitic diseases, unspecified